=== PATIENT | male | born 1955 | race Caucasian/White ===

== ENCOUNTER 2022-05-04 11:59 | Oncology outpatient (recurring) (ONCR) | payer SELFPAY | END 2022-05-19 23:59 | disposition home or self-care (01) | PROVIDERS: Visit Provider Internal Medicine Hematology & Oncology | DX: C61 Malignant neoplasm of prostate (principal); C79.51 Secondary malignant neoplasm of bone; N32.0 Bladder-neck obstruction; M54.59 Other low back pain; Z79.891 Long term (current) use of opiate analgesic; Z79.818 Long term (current) use of other agents affecting estrogen receptors and estrogen levels; Z79.52 Long term (current) use of systemic steroids; Z79.899 Other long term (current) drug therapy | CPT/HCPCS: 84153; 84403 ==

== ENCOUNTER 2022-06-16 09:30 | Oncology outpatient (recurring) (ONCR) | payer MEDICARE, SELFPAY ==
[2022-06-16 09:40] LABS: Basophils % 0.7 %; Hematocrit 46.9 % (42.0-52.0); Hemoglobin 16.1 g/dL (11.7-16.6); Lymphocytes # 1.4 10^3/uL (0.8-4.8); Lymphocytes % 23.6 %; Mean Corpuscular HGB Conc 34.3 g/dL (30.0-36.0); Mean Corpuscular Volume 96.1 fl (80-94); Monocytes # 0.5 10^3/uL (0.2-0.9); Monocytes % 8.8 %; Neutrophils # 3.88 10^3/uL (1.8-7.7); Neutrophils % 66.7 %; Nucleated Red Blood Cells % 0 %; Platelet Count 203 10^3/cmm (130-400); Red Blood Count 4.88 10^6/uL (4.1-5.3); Red Cell Distribution Width 11.9 % (12.1-15.1); White Blood Count 5.8 10^3/uL (4.0-10.0)
[2022-06-16 10:44] LABS: Alanine Aminotransferase 53 U/L (0-41); Albumin Level 4.2 g/dL (3.5-5.2); Alkaline Phosphatase 172 IU/L (40-130); Anion Gap 19.1 (5-19); Aspartate Amino Transferase 52 U/L (0-40); Blood Urea Nitrogen 6 mg/dL (8-23); Calcium 9.3 mg/dL (8.5-10.5); Carbon Dioxide 23 mmol/L (22-29); Chloride 101 mmol/L (98-107); Globulin 3.5 g/dL (1.3-4.6); Glomerular Filtration Rate 134.8 mL/min (90-130); Glucose 117 mg/dL (65-115); Osmolality Calculated 287 mOsm/kg (285-295); Potassium 4.1 mmol/L (3.5-5.1); Sodium 139 mmol/L (136-145); Total Bilirubin 0.6 mg/dL (0.15-1.2); Total Protein 7.7 g/dL (6.6-8.7)
[2022-06-16] MEDS: denosumab 120 mg SDV SUBCUT (11:34)
[2022-06-16] MEDS: leuprolide 22.5 mg Kit IM (11:35)
[2022-06-16 11:37] LABS: Testosterone Total 689.7 ng/dL (193-740)
== END 2022-06-19 23:59 | disposition home or self-care (01) ==
PROVIDERS: Visit Provider Internal Medicine Hematology & Oncology
DX: Z51.11 Encounter for antineoplastic chemotherapy (principal); Z79.818 Long term (current) use of other agents affecting estrogen receptors and estrogen levels; F17.210 Nicotine dependence, cigarettes, uncomplicated; C61 Malignant neoplasm of prostate; C79.51 Secondary malignant neoplasm of bone
CPT/HCPCS: 36415; 80053; 84153; 84403; 85025; 96372; 96401; 96402; 99214; 99215; J0897; J9217

== ENCOUNTER 2022-06-20 18:35 | Emergency (ER) | payer MEDICARE, SELFPAY ==
[2022-06-20 19:00] VITALS: BP 135/81; PULSE 84; RESP 22; TEMP 36.8; O2SAT 97; BMI 28.2
[2022-06-20 19:54] LABS: Basophils # 0.1 10^3/uL (0.0-0.1); Basophils % 0.6 %; Hematocrit 45.6 % (42.0-52.0); Hemoglobin 15.8 g/dL (11.7-16.6); Lymphocytes # 1.6 10^3/uL (0.8-4.8); Lymphocytes % 19.3 %; Mean Corpuscular HGB Conc 34.6 g/dL (30.0-36.0); Mean Corpuscular Hemoglobin 33.5 pg (28.0-34.0); Mean Corpuscular Volume 96.6 fl (80-94); Mean Platelet Volume 11.1 fL (7.4-10.4); Monocytes # 0.7 10^3/uL (0.2-0.9); Neutrophils # 6.03 10^3/uL (1.8-7.7); Neutrophils % 71.6 %; Nucleated Red Blood Cells % 0 %; Platelet Count 201 10^3/cmm (130-400); Red Blood Count 4.72 10^6/uL (4.1-5.3); Red Cell Distribution Width 11.9 % (12.1-15.1); White Blood Count 8.4 10^3/uL (4.0-10.0)
[2022-06-20 20:28] LABS: Alanine Aminotransferase 36 U/L (0-41); Alkaline Phosphatase 170 IU/L (40-130); Aspartate Amino Transferase 35 U/L (0-40); Blood Urea Nitrogen 7 mg/dL (8-23); Calcium 9.1 mg/dL (8.5-10.5); Carbon Dioxide 23 mmol/L (22-29); Chloride 99 mmol/L (98-107); Globulin 3.5 g/dL (1.3-4.6); Glomerular Filtration Rate 134.8 mL/min (90-130); Glucose 97 mg/dL (65-115); Lipase 36 U/L (13-60); Osmolality Calculated 282 mOsm/kg (285-295); Sodium 137 mmol/L (136-145); Total Bilirubin 0.7 mg/dL (0.15-1.2); Total Protein 7.5 g/dL (6.6-8.7)
[2022-06-20 20:29] LABS: Creatinine Clr Calc Pharmacy 108.3005
[2022-06-20 23:21] VITALS: BP 149/84; PULSE 85; RESP 18; TEMP 37.1; O2SAT 96
[2022-06-20 23:27] LABS: Add Urine Culture? Yes; Add Urine Microscopic? YES; Bacteria Urine 4+ /hpf; Bilirubin Urine Neg (Negative); Blood Urine Neg (Negative); Glucose Urine UA Norm (Normal); Ketones Urine 1+ (Negative); Leukocyte Esterase Urine Trace (Negative); Nitrate Urine Negative (Negative); Protein Urine Neg (Negative); RBC Urine 0-4 /hpf (0-2); Squamous Epithelial Cell Urine 0-4 /hpf (0-5); Urine Appearance Clear (CLEAR); Urine Color Yellow (Yellow); Urobilinogen Urine Norm (Negative); WBC Urine 0-4 /hpf (0-5); pH Urine 6.5 (5-7)
--- NOTE | 2022-06-20 23:27 | CTR_ITS ---
PROCEDURE INFORMATION: Exam: CT Abdomen And Pelvis Without Contrast Exam date and time: 06/20/2022 11:45 PM Age: 66 years old Clinical indication: Abdominal pain; Generalized; Patient HX: C/O abd pain with constipation. History of prostate cancer w/bone mets; Additional info: Abd pain, constipation, HX prostate cancer TECHNIQUE: Imaging protocol: Computed tomography of the abdomen and pelvis without contrast. Radiation optimization: All CT scans at this facility use at least one of these dose optimization techniques: automated exposure control; mA and/or kV adjustment per patient size (includes targeted exams where dose is matched to clinical indication); or iterative reconstruction. COMPARISON: CT abdomen pelvis w con* [id number] 03/10/2022 6:02 PM RADIATION DOSE METRICS: Total DLP (mGy-cm): 805.53 FINDINGS: Liver: Fatty liver. Gallbladder and bile ducts: No calcified stones. No ductal dilation. Pancreas: No ductal dilation. Spleen: No splenomegaly. Adrenal glands: Normal. No mass. Kidneys and ureters: No hydronephrosis. Stomach and bowel: Cecum is distended measuring 9 cm in noted in the right upper quadrant region. No mesenteric twisting or proximal small bowel dilation to suggest acute obstruction. Moderate amount of stool noted in the colon. Appendix: No evidence of appendicitis. Intraperitoneal space: No free air. No significant fluid collection. Vasculature: No abdominal aortic aneurysm. Lymph nodes: Stable enlarged left pelvic lymph nodes. Stable retroperitoneal nodes. Urinary bladder: Unremarkable as visualized. Reproductive: Enlarged heterogeneous appearance prostate gland. Bones/joints: Multiple lytic foci noted in the bony structures of the thorax, pelvis, lumbar spine and sacrum similar to prior examination, in keeping with history of metastases. Stable appearance of S2 with posterior endplate destruction Soft tissues: Unremarkable. CT/CT abdomen pelvis wo con [id number] IMPRESSION: 1. Cecum is distended measuring 9 cm in noted in the right upper quadrant region. No mesenteric twisting or proximal small bowel dilation to suggest acute obstruction. 2. Moderate amount of stool noted in the colon. 3. Enlarged heterogeneous appearance prostate gland. 4. Multiple lytic foci noted in the bony structures of the thorax, pelvis, lumbar spine and sacrum similar to prior examination, in keeping with history of metastases. 5. Stable left pelvic adenopathy.
[2022-06-20] MEDS: ondansetron 2 mg/ML SDV 2 mL 4 MG IVP (23:40)
[2022-06-20] MEDS: sodium chloride 0.9% 1,000 ML 999 ML IV (23:41)
--- NOTE | 2022-06-20 23:43 | W.ED.ABDPA2 ---
Documented by User: JESUS Avina 06/25/22 17:09 HPI - Abdominal Pain General: Chief Complaint: Abdominal Pain Stated Complaint: ABD PAIN Time Seen by Provider: 06/20/22 23:21 History of Present Illness: 66-year-old male patient comes in today with generalized abdominal pain. Patient reports constipation. Patient also reports that he has had not passed any gas since this morning. Patient denies any nausea or vomiting. Patient appears nontoxic. Patient appears in mild to moderate pain. Associated Symptoms: Reports constipation and nausea; Denies diarrhea, hematochezia and vomiting Review of Systems General: Reports: 10 or more systems reviewed and unremarkable except in HPI and below Card: Denies: chest pain Resp: Denies: dyspnea GI: Reports: abdominal pain, nausea and constipation; Denies: vomiting, diarrhea or hematochezia : Denies: difficulty urinating Musc: Denies: neck pain or back pain PFSH ED PFSH: Medical History Prostate cancer metastatic to bone Family History Mother Cancer Father Cancer lung Lung disease Lung cancer Sister Cancer Grandfather Diabetes Denies family history of CAD (coronary artery disease) Clotting disorder Dementia Hyperlipidemia Psychiatric illness Chronic kidney disease (CKD) Suicide Anesthesia complication Bleeding disorder Hypertension Stroke Social History Smoking and tobacco status: current every day smoker (2 ppd) cigarettes Packs smoked per day: 2 Alcohol intake: current Alcohol intake frequency: 3 or more drinks per day Physical Exam Const: COMMON NORMALS: alert HENMT: COMMON NORMALS: normocephalic HEAD & SCALP: normocephalic Neck/C-Spine: CERVICAL SPINE: No Cervical spine tenderness Resp: COMMON NORMALS: normal respiratory effort and clear to auscultation bilaterally AUSCULTATION: clear to auscultation bilaterally Cardio: COMMON NORMALS: regular rate and regular rhythm RATE: regular rate RHYTHM: regular rhythm GI: AUSCULTATION: Yes normoactive bowel sounds PALPATION: Yes Firmness to palpation present (GI) (Distended) and Yes Tenderness to palpation present (GI) (Mild generalized) Extremity: COMMON NORMALS: normal to inspection Neuro: SENSORIUM/ORIENTATION: Yes alert Skin: COMMON NORMALS: no rashes or lesions noted GENERAL SKIN EXAM: no rashes or lesions noted Course Vital Signs: Vital signs: Vital Signs Temperature 98.8 F 06/20/22 23:21 Pulse Rate 80 06/21/22 04:00 Respiratory Rate 20 H 06/21/22 04:21 Blood Pressure 134/72 06/21/22 04:00 Pulse Oximetry 96 06/21/22 04:00 Oxygen Delivery Me thod 06/20/22 19:00 MDM - Abdominal Pain Lab Data : 06/20/22 19:08 06/20/22 19:08 Labs/Radiology: Radiology Impressions Abdomen/Pelvis CT 06/20/22 23:27 IMPRESSION: 1. Cecum is distended measuring 9 cm in noted in the right upper quadrant region. No mesenteric twisting or proximal small bowel dilation to suggest acute obstruction. 2. Moderate amount of stool noted in the colon. 3. Enlarged heterogeneous appearance prostate gland. 4. Multiple lytic foci noted in the bony structures of the thorax, pelvis, lumbar spine and sacrum similar to prior examination, in keeping with history of metastases. 5. Stable left pelvic adenopathy. Laboratory Results WBC 8.4 10^3/uL (4.0-10.0) 06/20/22 19:08 RBC 4.72 10^6/uL (4.1-5.3) 06/20/22 19:08 Hgb 15.8 g/dL (11.7-16.6) 06/20/22 19:08 Hct 45.6 % (42.0-52.0) 06/20/22 19:08 MCV 96.6 fl (80-94) H 06/20/22 19:08 MCH 33.5 pg (28.0-34.0) 06/20/22 19:08 MCHC 34.6 g/dL (30.0-36.0) 06/20/22 19:08 RDW 11.9 % (12.1-15.1) L 06/20/22 19:08 Plt Count 201 10^3/cmm (130-400) 06/20/22 19:08 MPV 11.1 fL (7.4-10.4) H 06/20/22 19:08 Neut % (Auto) 71.6 % 06/20/22 19:08 Lymph % (Auto) 19.3 % 06/20/22 19:08 [place] % (Auto) 8.0 % 06/20/22 19:08 Eos % (Auto) 0.0 % 06/20/22 19:08 Baso % (Auto) 0.6 % 06/20/22 19:08 Neut # (Auto) 6.03 10^3/uL (1.8-7.7) 06/20/22 19:08 Lymph # (Auto) 1.6 10^3/uL (0.8-4.8) 06/20/22 19:08 [place] # (Auto) 0.7 10^3/uL (0.2-0.9) 06/20/22 19:08 Eos # (Auto) 0.0 10^3/uL (0.0-0.8) 06/20/22 19:08 Baso # (Auto) 0.1 10^3/uL (0.0-0.1) 06/20/22 19:08 Nucleated RBC % (auto) 0 % 06/20/22 19:08 Nucleated RBCs # 0.0 /100WBC 06/20/22 19:08 Sodium 137 mmol/L (136-145) 06/20/22 19:08 Potassium 4.0 mmol/L (3.5-5.1) 06/20/22 19:08 Chloride 99 mmol/L (98-107) 06/20/22 19:08 Carbon Dioxide 23 mmol/L (22-29) 06/20/22 19:08 Anion Gap 19.0 (5-19) 06/20/22 19:08 BUN 7 mg/dL (8-23) L 06/20/22 19:08 Creatinine 0.6 mg/dL (0.7-1.2) L 06/20/22 19:08 GFR Calculation 134.8 mL/min (90-130) H 06/20/22 19:08 Glucose 97 mg/dL (65-115) 06/20/22 19:08 Calculated Osmolality 282 mOsm/kg (285-295) L 06/20/22 19:08 Calcium 9.1 mg/dL (8.5-10.5) 06/20/22 19:08 Total Bilirubin 0.7 mg/dL (0.15-1.2) 06/20/22 19:08 AST 35 U/L (0-40) 06/20/22 19:08 ALT 36 U/L (0-41) 06/20/22 19:08 Alkaline Phosphatase 170 IU/L (40-130) H 06/20/22 19:08 Total Protein 7.5 g/dL (6.6-8.7) 06/20/22 19:08 Albumin 4.0 g/dL (3.5-5.2) 06/20/22 19:08 Globulin 3.5 g/dL (1.3-4.6) 06/20/22 19:08 Lipase 36 U/L (13-60) 06/20/22 19:08 Urine Color Yellow (Yellow) 06/20/22 22:30 Urine Appearance Clear (CLEAR) 06/20/22 22:30 Urine pH 6.5 (5-7) 06/20/22 22:30 Ur Specific [place] 1.010 (1.005-1.030) 06/20/22 22:30 Urine Protein Neg (Negative) 06/20/22 22:30 Urine Glucose (UA) Norm (Normal) 06/20/22 22:30 Urine Ketones 1+ (Negative) H 06/20/22 22:30 Urine Blood Neg (Negative) 06/20/22 22:30 Urine Nitrate Negative (Negative) 06/20/22 22:30 Urine Bilirubin Neg (Negative) 06/20/22 22:30 Urine Urobilinogen Norm mg/dL (Negative) 06/20/22 22:30 Ur Leukocyte Esterase Trace (Negative) H 06/20/22 22:30 Urine RBC 0-4 /hpf (0-2) H 06/20/22 22:30 Urine WBC 0-4 /hpf (0-5) H 06/20/22 22:30 Ur Squamous Epith Cells 0-4 /hpf (0-5) H 06/20/22 22:30 Amorphous Sediment Not Reportable 06/20/22 22:30 Urine Bacteria 4+ /hpf (NONE) H 06/20/22 22:30 Discharge Plan Discharge Patient Disposition: Home Clinical Impression: Prostate cancer metastatic to bone, Abdominal pain Condition: Stable Prescriptions: No Action prednisone 5 mg tablet 5 mg PO BID Qty: 60 5RF tamsulosin 0.4 mg capsule 0.4 mg PO BID Qty: 60 5RF hydrocodone-acetaminophen 5-325 mg tablet 1 tab PO .COMPLEX PRN Rx Instructions: 1 tab PO 4 to 6 hours PRN; bicalutamide [Casodex] 50 mg tablet 50 mg PO DAILY 30 Days Qty: 30 0RF Zytiga 250 mg Tablet 250 mg PO DAILY Qty: 28 0RF Rx Instructions: must be taken with or within 30 minutes of a low-fat breakfast Compazine 10 mg tablet 10 mg PO Q4H PRN (Reason: Mild Nausea) Qty: 30 3RF lorazepam 1 mg tablet 0.5 - 1 mg PO Q6H PRN (Reason: Severe Nausea) Qty: 30 3RF Discharge Orders: Discharge ED (Routine); Ordered 06/21/22 Ordered By: José Miguel Ba Discharge Diet: Advance as tolerated Discharge Activity: Resume usual activity Patient Instructions: Abdominal Pain (ED) Coding Level of Care Code ED Digital Producer for Chg Fwd Exam Comprehensive Documented by User: José Miguel Ba MD 06/21/22 04:00 HPI - Abdominal Pain General: Chief Complaint: Abdominal Pain Stated Complaint: ABD PAIN Time Seen by Provider: 06/20/22 23:21 PFSH ED PFSH: Medical History Prostate cancer metastatic to bone Family History Mother Cancer Father Cancer lung Lung disease Lung cancer Sister Cancer Grandfather Diabetes Denies family history of CAD (coronary artery disease) Clotting disorder Dementia Hyperlipidemia Psychiatric illness Chronic kidney disease (CKD) Suicide Anesthesia complication Bleeding disorder Hypertension Stroke Social History Smoking and tobacco status: current every day smoker (2 ppd) cigarettes Packs smoked per day: 2 Alcohol intake: current Alcohol intake frequency: 3 or more drinks per day Course Vital Signs: Vital signs: Vital Signs Temperature 98.8 F 08/01/22 23:21 Pulse Rate 80 06/21/22 04:00 Respiratory Rate 20 H 06/21/22 04:21 Blood Pressure 134/72 06/21/22 04:00 Pulse Oximetry 96 06/21/22 04:00 Oxygen Delivery Me thod 06/20/22 19:00 MDM - Abdominal Pain Medical Decision Making Patient presents here with abdominal pain likely from his cancer does have some constipation as well no acute findings lab work is normal he stable for discharge he is to follow-up his PCP and return if worsening he understands agrees to plan. Lab Data : 06/20/22 19:08 06/20/22 19:08 Labs/Radiology: Radiology Impressions Abdomen/Pelvis CT 06/20/22 23:27 IMPRESSION: 1. Cecum is distended measuring 9 cm in noted in the right upper quadrant region. No mesenteric twisting or proximal small bowel dilation to suggest acute obstruction. 2. Moderate amount of stool noted in the colon. 3. Enlarged heterogeneous appearance prostate gland. 4. Multiple lytic foci noted in the bony structures of the thorax, pelvis, lumbar spine and sacrum similar to prior examination, in keeping with history of metastases. 5. Stable left pelvic adenopathy. Laboratory Results WBC 8.4 10^3/uL (4.0-10.0) 06/20/22 19:08 RBC 4.72 10^6/uL (4.1-5.3) 06/20/22 19:08 Hgb 15.8 g/dL (11.7-16.6) 06/20/22 19:08 Hct 45.6 % (42.0-52.0) 06/20/22 19:08 MCV 96.6 fl (80-94) H 06/20/22 19:08 MCH 33.5 pg (28.0-34.0) 06/20/22 19:08 MCHC 34.6 g/dL (30.0-36.0) 06/20/22 19:08 RDW 11.9 % (12.1-15.1) L 06/20/22 19:08 Plt Count 201 10^3/cmm (130-400) 06/20/22 19:08 MPV 11.1 fL (7.4-10.4) H 06/20/22 19:08 Neut % (Auto) 71.6 % 06/20/22 19:08 Lymph % (Auto) 19.3 % 06/20/22 19:08 [place] % (Auto) 8.0 % 06/20/22 19:08 Eos % (Auto) 0.0 % 06/20/22 19:08 Baso % (Auto) 0.6 % 06/20/22 19:08 Neut # (Auto) 6.03 10^3/uL (1.8-7.7) 06/20/22 19:08 Lymph # (Auto) 1.6 10^3/uL (0.8-4.8) 06/20/22 19:08 [place] # (Auto) 0.7 10^3/uL (0.2-0.9) 06/20/22 19:08 Eos # (Auto) 0.0 10^3/uL (0.0-0.8) 06/20/22 19:08 Baso # (Auto) 0.1 10^3/uL (0.0-0.1) 06/20/22 19:08 Nucleated RBC % (auto) 0 % 06/20/22 19:08 Nucleated RBCs # 0.0 /100WBC 06/20/22 19:08 Sodium 137 mmol/L (136-145) 06/20/22 19:08 Potassium 4.0 mmol/L (3.5-5.1) 06/20/22 19:08 Chloride 99 mmol/L (98-107) 06/20/22 19:08 Carbon Dioxide 23 mmol/L (22-29) 06/20/22 19:08 Anion Gap 19.0 (5-19) 06/20/22 19:08 BUN 7 mg/dL (8-23) L 06/20/22 19:08 Creatinine 0.6 mg/dL (0.7-1.2) L 06/20/22 19:08 GFR Calculation 134.8 mL/min (90-130) H 06/20/22 19:08 Glucose 97 mg/dL (65-115) 06/20/22 19:08 Calculated Osmolality 282 mOsm/kg (285-295) L 06/20/22 19:08 Calcium 9.1 mg/dL (8.5-10.5) 06/20/22 19:08 Total Bilirubin 0.7 mg/dL (0.15-1.2) 06/20/22 19:08 AST 35 U/L (0-40) 06/20/22 19:08 ALT 36 U/L (0-41) 06/20/22 19:08 Alkaline Phosphatase 170 IU/L (40-130) H 06/20/22 19:08 Total Protein 7.5 g/dL (6.6-8.7) 06/20/22 19:08 Albumin 4.0 g/dL (3.5-5.2) 06/20/22 19:08 Globulin 3.5 g/dL (1.3-4.6) 06/20/22 19:08 Lipase 36 U/L (13-60) 06/20/22 19:08 Urine Color Yellow (Yellow) 06/20/22 22:30 Urine Appearance Clear (CLEAR) 06/20/22 22:30 Urine pH 6.5 (5-7) 06/20/22 22:30 Ur Specific [place] 1.010 (1.005-1.030) 06/20/22 22:30 Urine Protein Neg (Negative) 06/20/22 22:30 Urine Glucose (UA) Norm (Normal) 06/20/22 22:30 Urine Ketones 1+ (Negative) H 06/20/22 22:30 Urine Blood Neg (Negative) 06/20/22 22:30 Urine Nitrate Negative (Negative) 06/20/22 22:30 Urine Bilirubin Neg (Negative) 06/20/22 22:30 Urine Urobilinogen Norm mg/dL (Negative) 06/20/22 22:30 Ur Leukocyte Esterase Trace (Negative) H 06/20/22 22:30 Urine RBC 0-4 /hpf (0-2) H 06/20/22 22:30 Urine WBC 0-4 /hpf (0-5) H 06/20/22 22:30 Ur Squamous Epith Cells 0-4 /hpf (0-5) H 06/20/22 22:30 Amorphous Sediment Not Reportable 06/20/22 22:30 Urine Bacteria 4+ /hpf (NONE) H 06/20/22 22:30 Discharge Plan Discharge Patient Disposition: Home Clinical Impression: Prostate cancer metastatic to bone, Abdominal pain Condition: Stable Prescriptions: No Action prednisone 5 mg tablet 5 mg PO BID Qty: 60 5RF tamsulosin 0.4 mg capsule 0.4 mg PO BID Qty: 60 5RF hydrocodone-acetaminophen 5-325 mg tablet 1 tab PO .COMPLEX PRN Rx Instructions: 1 tab PO 4 to 6 hours PRN; bicalutamide [Casodex] 50 mg tablet 50 mg PO DAILY 30 Days Qty: 30 0RF Zytiga 250 mg Tablet 250 mg PO DAILY Qty: 28 0RF Rx Instructions: must be taken with or within 30 minutes of a low-fat breakfast Compazine 10 mg tablet 10 mg PO Q4H PRN (Reason: Mild Nausea) Qty: 30 3RF lorazepam 1 mg tablet 0.5 - 1 mg PO Q6H PRN (Reason: Severe Nausea) Qty: 30 3RF Discharge Orders: Discharge ED (Routine); Ordered 06/21/22 Ordered By: José Miguel Ba Discharge Diet: Advance as tolerated Discharge Activity: Resume usual activity Patient Instructions: Abdominal Pain (ED) Coding Level of Care Code ED Digital Producer for Tayla Fwfabi Exam Comprehensive
[2022-06-21 01:00] VITALS: BP 163/85; PULSE 67; O2SAT 97
[2022-06-21 04:00] VITALS: BP 134/72; PULSE 80; RESP 16; O2SAT 96
[2022-06-21 04:21] VITALS: RESP 20
[2022-06-21] MEDS: morphine 4 mg/mL SDV 1 mL IVP (04:21)
== END 2022-06-21 04:43 | disposition home or self-care (01) ==
PROVIDERS: Emergency Provider Emergency Medicine
DX: R10.9 Unspecified abdominal pain (principal); C61 Malignant neoplasm of prostate; C79.51 Secondary malignant neoplasm of bone; F17.210 Nicotine dependence, cigarettes, uncomplicated
CPT/HCPCS: 74176; 80053; 81001; 83690; 85025; 87077; 87086; 87186; 96361; 96374; 96375; 99285; J2270; J2405; J7030

== ENCOUNTER 2022-07-14 09:00 | Oncology outpatient (recurring) (ONCR) | payer MEDICARE, SELFPAY ==
--- NOTE | 2022-06-20 11:31 | PC.NURSE ---
Patient presented to office complaining of inability to sleep and abdominal cramps. Denies n/v or diarrhea at this time. Upon evaluation patient found to be taking prednisone on an empty stomach. Re-educated patient that prednisone needs to be taken with food. Patient states understanding.
[2022-07-14] MEDS: denosumab 120 mg SDV SUBCUT (10:45)
[2022-07-14 10:54] LABS: Basophils # 0.1 10^3/uL (0.0-0.1); Basophils % 0.9 %; Hematocrit 44.1 % (42.0-52.0); Hemoglobin 15.2 g/dL (11.7-16.6); Lymphocytes % 15.3 %; Mean Corpuscular HGB Conc 34.5 g/dL (30.0-36.0); Mean Corpuscular Hemoglobin 33.3 pg (28.0-34.0); Mean Corpuscular Volume 96.5 fl (80-94); Mean Platelet Volume 10.5 fL (7.4-10.4); Monocytes # 0.5 10^3/uL (0.2-0.9); Monocytes % 7.4 %; Neutrophils # 5.11 10^3/uL (1.8-7.7); Neutrophils % 76.1 %; Nucleated Red Blood Cells % 0 %; Platelet Count 183 10^3/cmm (130-400); Red Blood Count 4.57 10^6/uL (4.1-5.3); Red Cell Distribution Width 11.9 % (12.1-15.1); White Blood Count 6.7 10^3/uL (4.0-10.0)
[2022-07-14 11:31] LABS: Alanine Aminotransferase 37 U/L (0-41); Albumin Level 4.3 g/dL (3.5-5.2); Alkaline Phosphatase 286 U/L (40-130); Aspartate Amino Transferase 27 U/L (0-40); Blood Urea Nitrogen 8 mg/dL (8-23); Calcium 8.4 mg/dL (8.5-10.5); Carbon Dioxide 26 mmol/L (22-29); Chloride 104 mmol/L (98-107); Globulin 3.4 g/dL (1.3-4.6); Glomerular Filtration Rate 166.4 mL/min (90-130); Glucose 103 mg/dL (65-115); Osmolality Calculated 287 mOsm/kg (285-295); Sodium 139 mmol/L (136-145); Total Bilirubin 0.5 mg/dL (0.15-1.2); Total Protein 7.7 g/dL (6.6-8.7)
[2022-07-14 11:33] LABS: Anion Gap 13.7 (5-19); Potassium 4.7 mmol/L (3.5-5.1)
== END 2022-07-20 23:59 | disposition home or self-care (01) ==
PROVIDERS: Nurse Practitioner Family; Visit Provider Internal Medicine Hematology & Oncology
DX: C61 Malignant neoplasm of prostate (principal); C79.51 Secondary malignant neoplasm of bone; Z79.52 Long term (current) use of systemic steroids; Z51.11 Encounter for antineoplastic chemotherapy; F17.210 Nicotine dependence, cigarettes, uncomplicated
CPT/HCPCS: 36415; 80053; 84153; 85025; 96372; 99214; 99215; J0897

== ENCOUNTER 2022-08-11 09:59 | Oncology outpatient (recurring) (ONCR) | payer MEDICARE, SELFPAY ==
[2022-08-11 10:49] LABS: Basophils # 0.1 10^3/uL (0.0-0.1); Basophils % 0.6 %; Hematocrit 44.2 % (42.0-52.0); Hemoglobin 15.2 g/dL (11.7-16.6); Lymphocytes # 1.4 10^3/uL (0.8-4.8); Lymphocytes % 16.7 %; Mean Corpuscular HGB Conc 34.4 g/dL (30.0-36.0); Mean Corpuscular Hemoglobin 33.3 pg (28.0-34.0); Mean Corpuscular Volume 96.7 fl (80-94); Monocytes # 0.7 10^3/uL (0.2-0.9); Monocytes % 7.7 %; Neutrophils # 6.27 10^3/uL (1.8-7.7); Neutrophils % 74.5 %; Nucleated Red Blood Cells % 0 %; Platelet Count 197 10^3/cmm (130-400); Red Blood Count 4.57 10^6/uL (4.1-5.3); White Blood Count 8.4 10^3/uL (4.0-10.0)
[2022-08-11 11:22] LABS: Alanine Aminotransferase 28 U/L (0-41); Albumin Level 4.1 g/dL (3.5-5.2); Alkaline Phosphatase 235 U/L (40-130); Anion Gap 15.1 (5-19); Aspartate Amino Transferase 22 U/L (0-40); Blood Urea Nitrogen 8 mg/dL (8-23); Calcium 8.2 mg/dL (8.5-10.5); Carbon Dioxide 25 mmol/L (22-29); Chloride 102 mmol/L (98-107); Globulin 3.5 g/dL (1.3-4.6); Glomerular Filtration Rate 134.8 mL/min (90-130); Glucose 101 mg/dL (65-115); Osmolality Calculated 284 mOsm/kg (285-295); Potassium 4.1 mmol/L (3.5-5.1); Sodium 138 mmol/L (136-145); Testosterone Total 2.5 ng/dL (193-740); Total Bilirubin 0.5 mg/dL (0.15-1.2); Total Protein 7.6 g/dL (6.6-8.7)
[2022-08-11] MEDS: denosumab 120 mg SDV SUBCUT (12:34)
== END 2022-08-19 23:59 | disposition home or self-care (01) ==
PROVIDERS: Visit Provider Internal Medicine Hematology & Oncology
DX: C61 Malignant neoplasm of prostate; C79.51 Secondary malignant neoplasm of bone; Z79.52 Long term (current) use of systemic steroids; F17.210 Nicotine dependence, cigarettes, uncomplicated; Z79.818 Long term (current) use of other agents affecting estrogen receptors and estrogen levels; Z79.899 Other long term (current) drug therapy; R59.0 Localized enlarged lymph nodes
CPT/HCPCS: 36415; 80053; 84153; 84403; 85025; 96372; 99214; J0897

== ENCOUNTER 2022-09-12 09:05 | Oncology outpatient (recurring) (ONCR) | payer MEDICARE, SELFPAY ==
[2022-09-12 09:23] LABS: Basophils # 0.1 10^3/uL (0.0-0.1); Basophils % 0.9 %; Eosinophils % 0.4 %; Hematocrit 41.3 % (42.0-52.0); Hemoglobin 14.3 g/dL (11.7-16.6); Lymphocytes # 1.7 10^3/uL (0.8-4.8); Lymphocytes % 28.9 %; Mean Corpuscular HGB Conc 34.6 g/dL (30.0-36.0); Mean Corpuscular Volume 98.1 fl (80-94); Mean Platelet Volume 9.7 fL (7.4-10.4); Monocytes # 0.4 10^3/uL (0.2-0.9); Monocytes % 7.2 %; Neutrophils # 3.54 10^3/uL (1.8-7.7); Neutrophils % 62.1 %; Nucleated Red Blood Cells % 0 %; Platelet Count 197 10^3/cmm (130-400); Red Blood Count 4.21 10^6/uL (4.1-5.3); Red Cell Distribution Width 12.3 % (12.1-15.1); White Blood Count 5.7 10^3/uL (4.0-10.0)
[2022-09-12 09:58] LABS: Alanine Aminotransferase 34 U/L (0-41); Albumin Level 4.1 g/dL (3.5-5.2); Alkaline Phosphatase 122 U/L (40-130); Anion Gap 16.2 (5-19); Aspartate Amino Transferase 26 U/L (0-40); Blood Urea Nitrogen 6 mg/dL (8-23); Calcium 9.1 mg/dL (8.5-10.5); Carbon Dioxide 25 mmol/L (22-29); Chloride 104 mmol/L (98-107); Globulin 3.4 g/dL (1.3-4.6); Glomerular Filtration Rate 134.4 mL/min (90-130); Glucose 99 mg/dL (65-115); Osmolality Calculated 290 mOsm/kg (285-295); Potassium 4.2 mmol/L (3.5-5.1); Sodium 141 mmol/L (136-145); Total Bilirubin 0.3 mg/dL (0.15-1.2); Total Protein 7.5 g/dL (6.6-8.7)
[2022-09-12] MEDS: denosumab 120 mg SDV SUBCUT (11:28)
[2022-09-12] MEDS: leuprolide 22.5 mg Kit IM (11:28)
== END 2022-09-19 23:59 | disposition home or self-care (01) ==
PROVIDERS: Visit Provider Internal Medicine Hematology & Oncology
DX: C61 Malignant neoplasm of prostate; C79.51 Secondary malignant neoplasm of bone; F17.210 Nicotine dependence, cigarettes, uncomplicated; Z79.818 Long term (current) use of other agents affecting estrogen receptors and estrogen levels; Z79.52 Long term (current) use of systemic steroids; Z79.899 Other long term (current) drug therapy
CPT/HCPCS: 36415; 80053; 84153; 85025; 96372; 96402; 99214; J0897; J9217

== ENCOUNTER 2022-10-12 11:38 | Oncology outpatient (recurring) (ONCR) | payer MEDICARE, SELFPAY ==
[2022-10-12] MEDS: denosumab 120 mg SDV SUBCUT (11:58)
== END 2022-10-19 23:59 | disposition home or self-care (01) ==
LOC: ONCMED 11:40
PROVIDERS: PCP Registered Nurse; Visit Provider Internal Medicine Hematology & Oncology
DX: Z51.11 Encounter for antineoplastic chemotherapy (principal); C61 Malignant neoplasm of prostate; C79.51 Secondary malignant neoplasm of bone; F17.210 Nicotine dependence, cigarettes, uncomplicated
CPT/HCPCS: 96372; J0897

== ENCOUNTER 2022-11-10 09:05 | Oncology outpatient (recurring) (ONCR) | payer MEDICARE, SELFPAY ==
[2022-11-10] MEDS: denosumab 120 mg SDV SUBCUT (10:18)
[2022-11-10 10:25] VITALS: BP 151/91; PULSE 94; RESP 18; TEMP 36.6; O2SAT 97
== END 2022-11-19 23:59 | disposition home or self-care (01) ==
PROVIDERS: PCP Registered Nurse; Visit Provider Internal Medicine Hematology & Oncology
DX: C61 Malignant neoplasm of prostate (principal); C79.51 Secondary malignant neoplasm of bone; Z79.899 Other long term (current) drug therapy
CPT/HCPCS: 96372; 96401; J0897

== ENCOUNTER 2022-12-05 13:15 | Oncology outpatient (recurring) (ONCR) | payer MEDICARE, SELFPAY ==
[2022-12-05 14:51] LABS: Basophils % 0.5 %; Hematocrit 41.7 % (42.0-52.0); Hemoglobin 14.3 g/dL (11.7-16.6); Lymphocytes # 1.3 10^3/uL (0.8-4.8); Lymphocytes % 15.8 %; Mean Corpuscular HGB Conc 34.3 g/dL (30.0-36.0); Mean Corpuscular Hemoglobin 33.5 pg (28.0-34.0); Mean Corpuscular Volume 97.7 fl (80-94); Mean Platelet Volume 10.2 fL (7.4-10.4); Monocytes # 0.6 10^3/uL (0.2-0.9); Monocytes % 7.1 %; Neutrophils % 76.3 %; Nucleated Red Blood Cells % 0 %; Platelet Count 199 10^3/cmm (130-400); Red Blood Count 4.27 10^6/uL (4.1-5.3); Red Cell Distribution Width 11.5 % (12.1-15.1)
[2022-12-05 15:25] LABS: Alanine Aminotransferase 32 U/L (0-41); Albumin Level 4.3 g/dL (3.5-5.2); Alkaline Phosphatase 78 U/L (40-130); Anion Gap 16.2 (5-19); Aspartate Amino Transferase 21 U/L (0-40); Blood Urea Nitrogen 11 mg/dL (8-23); Calcium 8.7 mg/dL (8.5-10.5); Carbon Dioxide 23 mmol/L (22-29); Chloride 104 mmol/L (98-107); Globulin 3.1 g/dL (1.3-4.6); Glomerular Filtration Rate 134.4 mL/min (90-130); Glucose 96 mg/dL (65-115); Osmolality Calculated 287 mOsm/kg (285-295); Potassium 4.2 mmol/L (3.5-5.1); Prostate Specific Antigen 0.528 ng/mL (0-4); Sodium 139 mmol/L (136-145); Testosterone Total 2.5 ng/dL (193-740); Total Bilirubin 0.4 mg/dL (0.15-1.2); Total Protein 7.4 g/dL (6.6-8.7)
[2022-12-05] MEDS: leuprolide 22.5 mg Kit IM (16:35)
== END 2022-12-20 23:59 | disposition home or self-care (01) ==
PROVIDERS: Nurse Practitioner; PCP Registered Nurse; Visit Provider Internal Medicine Hematology & Oncology
DX: C61 Malignant neoplasm of prostate; C77.8 Secondary and unspecified malignant neoplasm of lymph nodes of multiple regions; C79.51 Secondary malignant neoplasm of bone; D70.4 Cyclic neutropenia; F17.210 Nicotine dependence, cigarettes, uncomplicated; Z79.52 Long term (current) use of systemic steroids; Z79.818 Long term (current) use of other agents affecting estrogen receptors and estrogen levels; Z79.899 Other long term (current) drug therapy
CPT/HCPCS: 80053; 84153; 84403; 85025; 96402; 99214; J9217

== ENCOUNTER 2023-01-24 08:26 | Outpatient (CLI) | payer MEDICARE, SELFPAY ==
--- NOTE | 2023-01-24 08:38 | NM_ITS ---
WS: [id number] NUCLEAR MEDICINE WHOLE BODY BONE SCAN HISTORY: Follow up prostate cancer. COMPARISON: CT abdomen and pelvis 06/20/2022, PET/CT 03/22/2022. TECHNIQUE: The patient was injected with 23.8 mCi of Technetium 99m HDP and serial whole-body scintig carlton have been performed with anterior and posterior images. There are innumerable areas of increased activity involving the ribs, thoracic and lumbar spine and t he pelvis. Focal asymmetric uptake within the pelvis including the SI joints and the randall. Focal incr eased uptake in the mid LEFT humerus. Multifocal involvement of the sternum. Additional degenerative changes at the AC joints and glenohumeral joints. Increased uptake at the tib iotalar joints and hindfoot. These changes are all degenerative. Normal soft tissue uptake. Renal activity is identified. IMPRESSION: 1. Extensive metastatic bone disease. There is significant involvement of the ribs, thoracic and lum bar spines, pelvis and sternum. Additional increased uptake in the mid LEFT humerus. No prior bone sc an for direct comparison. 2. Majority of these findings were also identified on the prior PET/CT and some of these findings we re identified on the CT of the abdomen and pelvis from 06/20/2022. Direct comparison is difficult betwe en different modalities. Improvement or progression is difficult as no prior bone scan has been perfo rmed.
== END 2023-01-24 08:27 | disposition home or self-care (01) ==
LOC: RAD 08:30
PROVIDERS: PCP Registered Nurse; Visit Provider Internal Medicine Hematology & Oncology
DX: C61 Malignant neoplasm of prostate (principal); C79.51 Secondary malignant neoplasm of bone
CPT/HCPCS: 78306; A9561

== ENCOUNTER 2023-01-26 13:55 | Outpatient (CLI) | payer MEDICARE, SELFPAY ==
--- NOTE | 2023-01-26 14:30 | CT_ITS ---
WS: [id number] CT ABDOMEN AND PELVIS WITH CONTRAST HISTORY: Prostate cancer. TECHNIQUE: Imaging performed of the abdomen and pelvis with IV contrast. Single phase imaging of the abdomen. Coronal and sagittal reformats are submitted. All CT scans at [facility] use at [address] one of these dose optimization techniques: automated exposure control; mA and/or kV adjustment per patient size (includes targeted exams where dose is matched to clinical indication); or iterative re construction. IV CONTRAST: Omnipaque 350; 100 mL IV. Oral contrast: No DLP: 762.03 mGy.cm COMPARISON: 06/20/2022. PET/CT 03/22/2022 Lower thorax: Benign granuloma LEFT lung base. Heart is normal size. Small hiatal hernia. Liver/biliary system: Normal size with no intrahepatic dilatation. Gallbladder: Normal. No gallstones or wall thickening. No pericholecystic fluid. Pancreas: Normal size pancreas and pancreatic duct. No adjacent inflammation. Spleen: Normal size spleen. No mass or infarct. Adrenal glands: Normal. Right kidney: Normal. Left kidney: There are a few scattered cortical densities which are too small to characterize. No obs truction or solid mass. Aorta: Moderate atherosclerosis with no aneurysm. Atherosclerotic plaque continues into the mesenteri c arteries. Lymphadenopathy: Previously described adenopathy along the LEFT external iliac chain has significantl y decreased. There is a single lymph node measuring 11 mm which is irregular borders. This correspond s to the largest lymph node on the prior study from 06/20/2022. Significant decrease in size of the lym ph nodes. No new or enlarging lymph nodes. Free fluid: None. GI tract: Study was performed without oral contrast. Stomach is not distended. No small bowel obstruc tion. No evidence for discitis. No evidence for diverticulitis. Abdominal wall: Unremarkable abdominal wall. No hernia. Pelvis: Postsurgical changes are stable at the LEFT inguinal region from prior hernia repair. Urinary bladder is moderately well distended. There is very mild bladder wall thickening which is slightly a symmetric on the LEFT. Prostate gland is small with central calcifications. Bones: Extensive lytic and blastic bone disease is identified. The sclerotic lesions or increasing. T he lytic areas recently described are being replaced with sclerosis. This may indicate treated diseas e. No pathological fractures identified. CT/CT abdomen pelvis w con* [id number] IMPRESSION: 1. Significant improvement in the LEFT external iliac artery lymphadenopathy s ever 06/20/2022. Small residual lymph node measuring 11 mm remains. 2. Small caliber prostate gland with central calcification. 3. Mild bladder wall thickening is slightly asymmetric to the LEFT. No focal a reas of enhancement. 4. Moderate atherosclerosis aorta. 5. Patient has known metastatic bone disease. The lytic lesions previously jessi cribed on 06/20/2022 are becoming sclerotic. There is extensive involvement of th e visualized lumbar spine, sacrum and pelvis and lower thoracic spine. There is no obvious progression of disease or new lesions. The lesions that were previo usly described are become sclerotic. This may indicate treated disease. Also, o n the recent bone scan the lesions within the lumbar spine demonstrated only mi ld uptake as compared to some of the thoracic vertebral bodies and the sacral l esions.
[2023-01-26] MEDS: iohexol 350 mg/mL 500 mL Btl (per mL) IV (14:38)
== END 2023-01-26 13:56 | disposition home or self-care (01) ==
LOC: RAD 13:59
PROVIDERS: PCP Registered Nurse; Visit Provider Internal Medicine Hematology & Oncology
DX: C61 Malignant neoplasm of prostate (principal); C79.51 Secondary malignant neoplasm of bone; I70.0 Atherosclerosis of aorta; R59.0 Localized enlarged lymph nodes
CPT/HCPCS: 74177; Q9967

== ENCOUNTER 2023-02-14 08:00 | Oncology outpatient (recurring) (ONCR) | payer MEDICARE, SELFPAY ==
[2023-01-27 08:30] LABS: Alanine Aminotransferase 36 U/L (0-41); Albumin Level 4.2 g/dL (3.5-5.2); Alkaline Phosphatase 78 U/L (40-130); Anion Gap 15.5 (5-19); Aspartate Amino Transferase 27 U/L (0-40); Blood Urea Nitrogen 9 mg/dL (8-23); Calcium 9.5 mg/dL (8.5-10.5); Carbon Dioxide 26 mmol/L (22-29); Chloride 101 mmol/L (98-107); Globulin 3.3 g/dL (1.3-4.6); Glomerular Filtration Rate 112.5 mL/min (90-130); Glucose 112 mg/dL (65-115); Osmolality Calculated 285 mOsm/kg (285-295); Potassium 4.5 mmol/L (3.5-5.1); Prostate Specific Antigen 0.699 ng/mL (0-4); Sodium 138 mmol/L (136-145); Total Bilirubin 0.3 mg/dL (0.15-1.2); Total Protein 7.5 g/dL (6.6-8.7)
[2023-02-08 07:45] LABS: Basophils # 0.1 10^3/uL (0.0-0.1); Basophils % 0.8 %; Hematocrit 43.2 % (42.0-52.0); Hemoglobin 14.9 g/dL (11.7-16.6); Lymphocytes # 2.5 10^3/uL (0.8-4.8); Lymphocytes % 30.6 %; Mean Corpuscular HGB Conc 34.5 g/dL (30.0-36.0); Mean Corpuscular Hemoglobin 33.3 pg (28.0-34.0); Mean Corpuscular Volume 96.6 fl (80-94); Mean Platelet Volume 10.1 fL (7.4-10.4); Monocytes # 0.9 10^3/uL (0.2-0.9); Monocytes % 11.8 %; Neutrophils # 4.53 10^3/uL (1.8-7.7); Neutrophils % 56.5 %; Nucleated Red Blood Cells % 0 %; Platelet Count 186 10^3/cmm (130-400); Red Blood Count 4.47 10^6/uL (4.1-5.3); Red Cell Distribution Width 11.3 % (12.1-15.1)
[2023-02-14 08:47] LABS: Basophils # 0.1 10^3/uL (0.0-0.1); Hematocrit 42.7 % (42.0-52.0); Hemoglobin 14.5 g/dL (11.7-16.6); Lymphocytes # 1.9 10^3/uL (0.8-4.8); Lymphocytes % 30.8 %; Mean Corpuscular Hemoglobin 32.7 pg (28.0-34.0); Mean Corpuscular Volume 96.2 fl (80-94); Mean Platelet Volume 10.5 fL (7.4-10.4); Monocytes # 0.7 10^3/uL (0.2-0.9); Monocytes % 11.2 %; Neutrophils # 3.49 10^3/uL (1.8-7.7); Neutrophils % 56.7 %; Nucleated Red Blood Cells % 0 %; Platelet Count 202 10^3/cmm (130-400); Red Blood Count 4.44 10^6/uL (4.1-5.3); Red Cell Distribution Width 11.2 % (12.1-15.1); White Blood Count 6.2 10^3/uL (4.0-10.0)
[2023-02-14 09:11] LABS: Alanine Aminotransferase 35 U/L (0-41); Alkaline Phosphatase 71 U/L (40-130); Anion Gap 15.1 (5-19); Aspartate Amino Transferase 27 U/L (0-40); Blood Urea Nitrogen 7 mg/dL (8-23); Calcium 9.3 mg/dL (8.5-10.5); Carbon Dioxide 26 mmol/L (22-29); Chloride 105 mmol/L (98-107); Globulin 3.1 g/dL (1.3-4.6); Glomerular Filtration Rate 134.4 mL/min (90-130); Glucose 102 mg/dL (65-115); Osmolality Calculated 292 mOsm/kg (285-295); Potassium 4.1 mmol/L (3.5-5.1); Sodium 142 mmol/L (136-145); Total Bilirubin 0.4 mg/dL (0.15-1.2); Total Protein 7.1 g/dL (6.6-8.7)
== END 2023-02-17 23:59 | disposition home or self-care (01) ==
PROVIDERS: Nurse Practitioner Family; PCP Registered Nurse; Visit Provider Internal Medicine Hematology & Oncology
DX: C61 Malignant neoplasm of prostate (principal); C79.51 Secondary malignant neoplasm of bone; C77.8 Secondary and unspecified malignant neoplasm of lymph nodes of multiple regions; F17.210 Nicotine dependence, cigarettes, uncomplicated; Z79.52 Long term (current) use of systemic steroids; Z79.818 Long term (current) use of other agents affecting estrogen receptors and estrogen levels; Z79.899 Other long term (current) drug therapy
CPT/HCPCS: 36415; 80053; 84153; 85025; 99213; 99214

== ENCOUNTER 2023-03-13 11:57 | Oncology outpatient (recurring) (ONCR) | payer MEDICARE, SELFPAY ==
[2023-03-13 13:32] LABS: Basophils % 0.7 %; Hematocrit 42.2 % (42.0-52.0); Hemoglobin 14.7 g/dL (11.7-16.6); Lymphocytes # 1.5 10^3/uL (0.8-4.8); Lymphocytes % 23.9 %; Mean Corpuscular HGB Conc 34.8 g/dL (30.0-36.0); Mean Corpuscular Hemoglobin 33.1 pg (28.0-34.0); Mean Platelet Volume 10.1 fL (7.4-10.4); Monocytes # 0.6 10^3/uL (0.2-0.9); Monocytes % 9.4 %; Neutrophils # 3.99 10^3/uL (1.8-7.7); Neutrophils % 65.7 %; Nucleated Red Blood Cells % 0 %; Platelet Count 193 10^3/cmm (130-400); Red Blood Count 4.44 10^6/uL (4.1-5.3); Red Cell Distribution Width 11.2 % (12.1-15.1); White Blood Count 6.1 10^3/uL (4.0-10.0)
[2023-03-13 13:56] LABS: Alanine Aminotransferase 42 U/L (0-41); Albumin Level 4.2 g/dL (3.5-5.2); Alkaline Phosphatase 69 U/L (40-130); Anion Gap 14.1 (5-19); Aspartate Amino Transferase 29 U/L (0-40); Blood Urea Nitrogen 9 mg/dL (8-23); Calcium 9.2 mg/dL (8.5-10.5); Carbon Dioxide 25 mmol/L (22-29); Chloride 100 mmol/L (98-107); Globulin 3.1 g/dL (1.3-4.6); Glomerular Filtration Rate 134.4 mL/min (90-130); Glucose 95 mg/dL (65-115); Osmolality Calculated 278 mOsm/kg (285-295); Potassium 4.1 mmol/L (3.5-5.1); Prostate Specific Antigen 0.657 ng/mL (0-4); Sodium 135 mmol/L (136-145); Testosterone Total 9.2 ng/dL (193-740); Total Bilirubin 0.4 mg/dL (0.15-1.2); Total Protein 7.3 g/dL (6.6-8.7)
[2023-03-13] MEDS: leuprolide 22.5 mg Kit IM (14:37)
== END 2023-03-19 23:59 | disposition home or self-care (01) ==
PROVIDERS: PCP Registered Nurse; Visit Provider Internal Medicine Hematology & Oncology
DX: C79.51 Secondary malignant neoplasm of bone (principal); C77.8 Secondary and unspecified malignant neoplasm of lymph nodes of multiple regions; F17.210 Nicotine dependence, cigarettes, uncomplicated; Z79.52 Long term (current) use of systemic steroids; Z79.818 Long term (current) use of other agents affecting estrogen receptors and estrogen levels; Z79.899 Other long term (current) drug therapy; C61 Malignant neoplasm of prostate
CPT/HCPCS: 36415; 80053; 84153; 84403; 85025; 96402; 99214; J9217

== ENCOUNTER 2023-06-15 10:44 | Oncology outpatient (recurring) (ONCR) | payer MEDICARE, SELFPAY ==
[2023-06-15 10:56] VITALS: BP 163/99; PULSE 115; RESP 18; TEMP 36.5; O2SAT 95
[2023-06-15 11:06] LABS: Basophils # 0.1 10^3/uL (0.0-0.1); Hemoglobin 14.8 g/dL (11.7-16.6); Lymphocytes # 1.7 10^3/uL (0.8-4.8); Lymphocytes % 23.5 %; Mean Corpuscular HGB Conc 34.4 g/dL (30.0-36.0); Mean Corpuscular Hemoglobin 33.6 pg (28.0-34.0); Mean Corpuscular Volume 97.5 fl (80-94); Mean Platelet Volume 10.7 fL (7.4-10.4); Monocytes # 0.7 10^3/uL (0.2-0.9); Monocytes % 9.8 %; Neutrophils # 4.66 10^3/uL (1.8-7.7); Neutrophils % 65.1 %; Nucleated Red Blood Cells % 0 %; Platelet Count 215 10^3/cmm (130-400); Red Blood Count 4.41 10^6/uL (4.1-5.3); Red Cell Distribution Width 11.6 % (12.1-15.1); White Blood Count 7.2 10^3/uL (4.0-10.0)
[2023-06-15 11:52] LABS: Alanine Aminotransferase 49 U/L (0-41); Albumin Level 4.5 g/dL (3.5-5.2); Alkaline Phosphatase 95 U/L (40-130); Anion Gap 17.9 (5-19); Aspartate Amino Transferase 31 U/L (0-40); Blood Urea Nitrogen 9 mg/dL (8-23); Carbon Dioxide 25 mmol/L (22-29); Chloride 100 mmol/L (98-107); Globulin 2.7 g/dL (1.3-4.6); Glomerular Filtration Rate 134.4 mL/min (90-130); Glucose 108 mg/dL (65-115); Osmolality Calculated 285 mOsm/kg (285-295); Potassium 4.9 mmol/L (3.5-5.1); Sodium 138 mmol/L (136-145); Testosterone Total 17.1 ng/dL (193-740); Total Bilirubin 0.4 mg/dL (0.15-1.2); Total Protein 7.2 g/dL (6.6-8.7)
[2023-06-15] MEDS: leuprolide 22.5 mg Kit IM (13:22)
[2023-06-15] MEDS: denosumab 120 mg SDV SUBCUT (13:23)
== END 2023-06-19 23:59 | disposition home or self-care (01) ==
PROVIDERS: Nurse Practitioner; PCP Registered Nurse; Visit Provider Internal Medicine Hematology & Oncology
DX: C79.51 Secondary malignant neoplasm of bone (principal); C77.8 Secondary and unspecified malignant neoplasm of lymph nodes of multiple regions; F17.210 Nicotine dependence, cigarettes, uncomplicated; Z79.52 Long term (current) use of systemic steroids; Z79.818 Long term (current) use of other agents affecting estrogen receptors and estrogen levels; Z79.899 Other long term (current) drug therapy; C61 Malignant neoplasm of prostate
CPT/HCPCS: 36415; 80053; 84153; 84403; 85025; 96372; 96402; 99214; J0897; J9217

== ENCOUNTER 2023-07-17 10:37 | Oncology outpatient (recurring) (ONCR) | payer MEDICARE, SELFPAY ==
[2023-07-17 10:55] VITALS: BP 151/92; PULSE 87; RESP 18; TEMP 36.3; O2SAT 96
[2023-07-17 11:13] LABS: Basophils # 0.1 10^3/uL (0.0-0.1); Basophils % 0.8 %; Hematocrit 41.2 % (37-53); Lymphocytes # 1.6 10^3/uL (0.8-4.8); Lymphocytes % 22.5 %; Mean Corpuscular HGB Conc 35.4 g/dL (30-55); Mean Corpuscular Hemoglobin 34.4 pg (27-33); Mean Corpuscular Volume 97.2 fl (82-101); Mean Platelet Volume 10.4 fL (7.4-10.4); Monocytes # 0.8 10^3/uL (0.2-0.9); Monocytes % 11.6 %; Neutrophils # 4.59 10^3/uL (1.8-7.7); Neutrophils % 64.8 %; Nucleated Red Blood Cells % 0 %; Platelet Count 186 10^3/cmm (157-399); Red Blood Count 4.24 10^6/uL (3.85-5.65); Red Cell Distribution Width 11.4 % (12.1-15.1); White Blood Count 7.08 10^3/uL (3.29-11.43)
[2023-07-17 11:42] LABS: Alanine Aminotransferase 51 U/L (0-41); Albumin Level 4.2 g/dL (3.5-5.2); Alkaline Phosphatase 82 U/L (40-130); Anion Gap 14.1 (5-19); Aspartate Amino Transferase 30 U/L (0-40); Blood Urea Nitrogen 8 mg/dL (8-23); Calcium 8.9 mg/dL (8.5-10.5); Carbon Dioxide 25 mmol/L (22-29); Chloride 102 mmol/L (98-107); Globulin 2.9 g/dL (1.3-4.6); Glomerular Filtration Rate 134.4 mL/min (90-130); Glucose 109 mg/dL (65-115); Osmolality Calculated 283 mOsm/kg (285-295); Potassium 4.1 mmol/L (3.5-5.1); Sodium 137 mmol/L (136-145); Total Bilirubin 0.5 mg/dL (0.15-1.2); Total Protein 7.1 g/dL (6.6-8.7)
[2023-07-17 11:47] LABS: Testosterone Total 26.1 ng/dL (193-740)
== END 2023-07-20 23:59 | disposition home or self-care (01) ==
PROVIDERS: Internal Medicine Medical Oncology; Nurse Practitioner; PCP Registered Nurse; Visit Provider Internal Medicine Hematology & Oncology
DX: C79.51 Secondary malignant neoplasm of bone (principal); C77.8 Secondary and unspecified malignant neoplasm of lymph nodes of multiple regions; F17.210 Nicotine dependence, cigarettes, uncomplicated; Z79.52 Long term (current) use of systemic steroids; Z79.818 Long term (current) use of other agents affecting estrogen receptors and estrogen levels; Z79.899 Other long term (current) drug therapy; D70.4 Cyclic neutropenia; C61 Malignant neoplasm of prostate
CPT/HCPCS: 36415; 80053; 84153; 84403; 85025; 99214

== ENCOUNTER 2023-08-03 12:30 | Outpatient (CLI) | payer MEDICARE, SELFPAY ==
--- NOTE | 2023-08-03 13:00 | CT_ITS ---
WS: [id number] CT CHEST, ABDOMEN AND PELVIS WITH CONTRAST HISTORY: increasing PSA TECHNIQUE: Contiguous 5 mm axial imaging performed through the chest, abdomen and pelvis with IV cont rast, oral contrast has been provided. Coronal and sagittal reformats chest. Coronal and sagittal ref ormats through the abdomen and pelvis. All CT scans at [facility] use at least one of these d ose optimization techniques: automated exposure control; mA and/or kV adjustment per patient size (in cludes targeted exams where dose is matched to clinical indication); or iterative reconstruction. CONTRAST: Omnipaque 350; 100 mL IV. DLP: 1082.86 mGy.cm COMPARISON: 01/26/[address]: Centrilobular emphysema. No pulmonary mass, pneumonia or nodules. No pericardial or pleural effusions. Heart size is normal. Mild atherosclerosis aorta. Normal sized pulmonary artery. No media stinal or hilar adenopathy. Small hiatal hernia. Extensive osteoblastic metastatic disease throughout the thoracic vertebral bodies and the bones of t he thorax including the sternum, scapula and ribs. As compared to the PET/CT there is been a progress ion of osteo blastic bone disease. Abdomen CT: Normal liver, spleen and gallbladder. Normal pancreas and adrenal glands. No renal obstru ction or solid mass. Moderate atherosclerosis aorta. No ascites or adenopathy. Normal appearance of the stomach. No small bowel obstruction. No colon obstruction. Normal appendix. Pelvic CT: Prostate gland is small caliber with central calcification. Well distended urinary bladder . No focal nodular enhancement. No ascites or pelvic adenopathy. Inguinal canals are patent bilateral ly. Although very slight there has probably been a very slight progression in osteoblastic bone disease s ever 01/26/2023 within the pelvis and lumbar spine. IMPRESSION: 1. No metastatic nodules within the lungs, liver or adrenal glands. 2. No adenopathy within the chest, abdomen or pelvis. 3. Patient has known extensive osteoblastic prostate metastasis. As compared to the prior CT of 2021 osteoblastic changes in the lower thoracic spine have increased. Equivocal change of osteoblasti c disease in the lumbar spine and pelvis since 01/26/2023.
[2023-08-03] MEDS: iohexol 350 mg/mL 500 mL Btl (per mL) IV (13:30)
[2023-08-03] MEDS: iohexol 350 mg/mL 500 mL Btl (per mL) PO (13:31)
== END 2023-08-03 12:31 | disposition home or self-care (01) ==
LOC: RAD 12:35
PROVIDERS: PCP Registered Nurse; Visit Provider Internal Medicine Medical Oncology
DX: C61 Malignant neoplasm of prostate (principal); C79.51 Secondary malignant neoplasm of bone
CPT/HCPCS: 71260; 74177; Q9967

== ENCOUNTER 2023-09-01 07:35 | Outpatient (CLI) | payer MEDICARE, SELFPAY ==
--- NOTE | 2023-09-01 08:00 | NM_ITS ---
WS: [id number] NUCLEAR MEDICINE BONE SCAN Radiopharmaceutical: 24.7 Tc-99m MDP mCi IV Injection site: Antecubital Postinjection imaging delay: 1 hr CLINICAL INFORMATION: Prostate cancer metastatic to bone COMPARISON: 01/24/2023 FINDINGS: Bone lesions: Diffuse bony metastatic disease throughout the axial skeleton also involving the LEFT p roximal humerus similar to previous. Numerous punctate foci involving the ribs bilaterally, thoracic spine, lower lumbar spine, bony pelvis, and sacrum. Multiple punctate foci involve the sternum simila r to previous. Soft tissue contours: Normal. Kidneys: Normal. Other findings: Degenerative type uptake both AC joints, both knees, and both ankles. IMPRESSION: Diffuse bony metastatic disease described above does not appear significantly changed since 01/24/2023
== END 2023-09-01 07:36 | disposition home or self-care (01) ==
LOC: RAD 07:37
PROVIDERS: PCP Registered Nurse; Visit Provider Internal Medicine Medical Oncology
DX: C61 Malignant neoplasm of prostate (principal); C79.51 Secondary malignant neoplasm of bone
CPT/HCPCS: 78306; A9561

== ENCOUNTER 2023-10-18 11:45 | Oncology outpatient (recurring) (ONCR) | payer MEDICARE, SELFPAY ==
[2023-10-04] MEDS: denosumab 120 mg SDV SUBCUT (12:07)
[2023-10-04] MEDS: leuprolide 22.5 mg Kit IM (12:09)
[2023-10-04 12:21] LABS: Basophils # 0.1 10^3/uL (0.0-0.1); Basophils % 0.9 %; Eosinophils # 0.1 10^3/uL (0.0-0.8); Eosinophils % 1.1 %; Hematocrit 40.7 % (37-53); Lymphocytes # 1.2 10^3/uL (0.8-4.8); Lymphocytes % 22.6 %; Mean Corpuscular HGB Conc 35.6 g/dL (30-55); Mean Corpuscular Hemoglobin 34.4 pg (27-33); Mean Corpuscular Volume 96.4 fl (82-101); Mean Platelet Volume 10.2 fL (7.4-10.4); Monocytes # 0.7 10^3/uL (0.2-0.9); Monocytes % 12.4 %; Neutrophils # 3.38 10^3/uL (1.8-7.7); Neutrophils % 62.8 %; Nucleated Red Blood Cells % 0 %; Platelet Count 166 10^3/cmm (157-399); Red Blood Count 4.22 10^6/uL (3.85-5.65); Red Cell Distribution Width 11.4 % (12.1-15.1); White Blood Count 5.39 10^3/uL (3.29-11.43)
[2023-10-04 12:56] LABS: Alanine Aminotransferase 55 U/L (0-41); Albumin Level 3.9 g/dL (3.5-5.2); Alkaline Phosphatase 80 U/L (40-130); Anion Gap 17.7 (5-19); Aspartate Amino Transferase 41 U/L (0-40); Blood Urea Nitrogen 9 mg/dL (8-23); Calcium 9.3 mg/dL (8.5-10.5); Carbon Dioxide 22 mmol/L (22-29); Chloride 102 mmol/L (98-107); Globulin 3.1 g/dL (1.3-4.6); Glucose 113 mg/dL (65-115); Osmolality Calculated 285 mOsm/kg (285-295); Potassium 3.7 mmol/L (3.5-5.1); Sodium 138 mmol/L (136-145); Testosterone Total 25.1 ng/dL (193-740); Total Bilirubin 0.7 mg/dL (0.15-1.2)
== END 2023-10-19 23:59 | disposition home or self-care (01) ==
PROVIDERS: Internal Medicine Medical Oncology; PCP Registered Nurse; Visit Provider Internal Medicine Medical Oncology
DX: Z53.9 Procedure and treatment not carried out, unspecified reason (principal)
CPT/HCPCS: 36415; 80053; 84153; 84403; 85025; 96372; 96401; 99214; J0897; J9217

== ENCOUNTER 2024-01-05 09:12 | Outpatient (CLI) | payer MEDICARE, SELFPAY ==
--- NOTE | 2024-01-05 09:30 | NM_ITS ---
WS: [id number] NUCLEAR MEDICINE BONE SCAN Radiopharmaceutical: 27.1 Tc-99m MDP mCi IV Injection site: Antecubital Postinjection imaging delay: 1 hr CLINICAL INFORMATION: prostate cancer metastatic to bone COMPARISON: 09/01/2023 FINDINGS: Bone lesions: Previously described diffuse metastatic disease appears somewhat improved compared to p revious with decreased intensity of bony activity. Persistent foci of uptake in the LEFT humeral shaf t, sternum and manubrium, bilateral ribs, cervical and thoracic spine, and lumbosacral junction exten ding into the sacrum. No evidence of new or significant progressed disease. Soft tissue contours: Normal. Kidneys: Normal. Other findings: Degenerative type uptake involving both AC joints, knees, and ankles. IMPRESSION: 1. No evidence of new or progressed bony metastatic disease. 2. Persistent foci of activity in a similar distribution as previous appears somewhat improved with decreased intensity today. 3. No other significant changes.
== END 2024-01-05 09:13 | disposition home or self-care (01) ==
LOC: RAD 09:13
PROVIDERS: PCP Registered Nurse; Visit Provider Internal Medicine
DX: C61 Malignant neoplasm of prostate (principal); C79.51 Secondary malignant neoplasm of bone
CPT/HCPCS: 78306; A9561

== ENCOUNTER 2024-01-09 09:38 | Outpatient (CLI) | payer MEDICARE, SELFPAY ==
--- NOTE | 2024-01-09 11:00 | CT_ITS ---
WS: [id number] CT CHEST, ABDOMEN, AND PELVIS TECHNIQUE: Contrast-enhanced CT of the chest, abdomen, and pelvis with coronal and sagittal reformatt ed images. CLINICAL INFORMATION: Prostate cancer metastatic to bone COMPARISON: CT 08/03/2023. PET CT 10/17/2023 DLP: 1237.[address] scans at [facility] use at least one of these dose optimization techniques: automated e xposure control; mA and/or kV adjustment per patient size (includes targeted exams where dose is matc hed to clinical indication); or iterative reconstruction. CT CHEST: Mild chronic emphysematous changes. Fibrosis in the lung apices. Calcified granuloma LEFT lower lobe. No new suspicious pulmonary parenchymal abnormalities. Normal thyroid gland. Normal caliber thoracic aorta. Aortic calcification. Coronary calcification. No mediastinal or hilar lymphadenopathy. No axi llary lymphadenopathy. Innumerable blastic metastatic lesions throughout the thoracic spine is stable in appearance since the prior CT 08/03/2023. Blastic lesions throughout the visualized ribs are simil ar in appearance. Similar-appearing blastic metastatic lesions in the scapula. A few small stable nodules in the LEFT lung apex. CT ABDOMEN AND PELVIS: Diffuse blastic metastatic lesions in the lumbar spine and bony pelvis extending into the proximal fe murs similar in appearance to 08/03/2023. Diffuse fatty infiltration of the liver. Normal portal vein and splenic vein. Normal pancreas. Normal spleen. Normal GE junction. Adrenal glands are normal. Normal renal parenchymal enhancement. No hydronephrosis. Small LEFT renal cyst. Normal caliber abdominal aorta. Diffuse bladder wall thickening. Prostate calcification. Magnolia l sigmoid colon. No evidence of high-grade small or large bowel obstruction. No adenopathy in the abd omen or pelvis. No inguinal lymphadenopathy. IMPRESSION: 1. No evidence of progressed disease in the chest abdomen or pelvis. 2. Stable blastic metastatic lesions throughout the axial and appendicular skeleton. 3. No adenopathy in the chest abdomen or pelvis. 4. Mild diffuse fatty infiltration of the liver. 5. No other remarkable findings.
[2024-01-09] MEDS: iohexol 350 mg/mL 100 mL Btl IV (11:15)
[2024-01-09] MEDS: iohexol 350 mg/mL 500 mL Btl (per mL) PO (11:15)
== END 2024-01-09 09:39 | disposition home or self-care (01) ==
LOC: RAD 09:38
PROVIDERS: PCP Registered Nurse; Visit Provider Internal Medicine
DX: C61 Malignant neoplasm of prostate (principal); C79.51 Secondary malignant neoplasm of bone
CPT/HCPCS: 71260; 74177; Q9967

== ENCOUNTER 2024-01-10 13:02 | Oncology outpatient (recurring) (ONCR) | payer MEDICARE, SELFPAY ==
[2023-12-26 12:39] LABS: Basophils # 0.1 10^3/uL (0.0-0.1); Hematocrit 44.1 % (37-53); Lymphocytes # 1.7 10^3/uL (0.8-4.8); Lymphocytes % 22.6 %; Mean Corpuscular HGB Conc 35.6 g/dL (30-55); Mean Corpuscular Hemoglobin 34.3 pg (27-33); Mean Corpuscular Volume 96.3 fl (82-101); Monocytes # 0.6 10^3/uL (0.2-0.9); Monocytes % 8.8 %; Neutrophils # 4.91 10^3/uL (1.8-7.7); Neutrophils % 67.3 %; Nucleated Red Blood Cells % 0 %; Platelet Count 177 10^3/cmm (157-399); Red Blood Count 4.58 10^6/uL (3.85-5.65); Red Cell Distribution Width 11.2 % (12.1-15.1); White Blood Count 7.29 10^3/uL (3.29-11.43)
[2023-12-26 13:09] LABS: Alanine Aminotransferase 64 U/L (0-41); Albumin Level 4.3 g/dL (3.5-5.2); Alkaline Phosphatase 77 U/L (40-130); Anion Gap 17.1 (5-19); Aspartate Amino Transferase 50 U/L (0-40); Blood Urea Nitrogen 9 mg/dL (8-23); Calcium 9.6 mg/dL (8.5-10.5); Carbon Dioxide 25 mmol/L (22-29); Chloride 98 mmol/L (98-107); Globulin 3.4 g/dL (1.3-4.6); Glomerular Filtration Rate 112.1 mL/min (90-130); Glucose 113 mg/dL (65-115); Osmolality Calculated 281 mOsm/kg (285-295); Potassium 4.1 mmol/L (3.5-5.1); Sodium 136 mmol/L (136-145); Testosterone Total 26.6 ng/dL (193-740); Total Bilirubin 0.5 mg/dL (0.15-1.2); Total Protein 7.7 g/dL (6.6-8.7)
[2023-12-26] MEDS: leuprolide 22.5 mg Kit IM (15:58)
[2023-12-26] MEDS: denosumab 120 mg SDV SUBCUT (15:59)
[2024-01-10 13:12] LABS: Basophils % 0.7 %; Hematocrit 41.7 % (37-53); Lymphocytes # 1.6 10^3/uL (0.8-4.8); Lymphocytes % 26.5 %; Mean Corpuscular Hemoglobin 34.4 pg (27-33); Mean Corpuscular Volume 98.1 fl (82-101); Mean Platelet Volume 10.2 fL (7.4-10.4); Monocytes # 0.7 10^3/uL (0.2-0.9); Monocytes % 10.9 %; Neutrophils # 3.75 10^3/uL (1.8-7.7); Neutrophils % 61.7 %; Nucleated Red Blood Cells % 0 %; Platelet Count 173 10^3/cmm (157-399); Red Blood Count 4.25 10^6/uL (3.85-5.65); Red Cell Distribution Width 11.3 % (12.1-15.1); White Blood Count 6.07 10^3/uL (3.29-11.43)
[2024-01-10 13:37] LABS: Alanine Aminotransferase 69 U/L (0-41); Alkaline Phosphatase 86 U/L (40-130); Anion Gap 15.1 (5-19); Aspartate Amino Transferase 61 U/L (0-40); Blood Urea Nitrogen 9 mg/dL (8-23); Calcium 8.7 mg/dL (8.5-10.5); Carbon Dioxide 24 mmol/L (22-29); Chloride 102 mmol/L (98-107); Globulin 3.2 g/dL (1.3-4.6); Glucose 102 mg/dL (65-115); Lactate Dehydrogenase 237 U/L (135-225); Osmolality Calculated 283 mOsm/kg (285-295); Potassium 4.1 mmol/L (3.5-5.1); Sodium 137 mmol/L (136-145); Testosterone Total 22.9 ng/dL (193-740); Total Bilirubin 0.4 mg/dL (0.15-1.2); Total Protein 7.2 g/dL (6.6-8.7)
== END 2024-01-18 23:59 | disposition home or self-care (01) ==
PROVIDERS: Internal Medicine; PCP Registered Nurse; Visit Provider Internal Medicine Medical Oncology
DX: C61 Malignant neoplasm of prostate (principal); C79.51 Secondary malignant neoplasm of bone; C77.8 Secondary and unspecified malignant neoplasm of lymph nodes of multiple regions; Z79.899 Other long term (current) drug therapy; Z79.818 Long term (current) use of other agents affecting estrogen receptors and estrogen levels; Z72.0 Tobacco use; Z53.9 Procedure and treatment not carried out, unspecified reason
CPT/HCPCS: 36415; 71260; 74177; 80053; 83615; 84153; 84403; 85025; 96372; 96402; 99214; J0897; J9217; Q9967

== ENCOUNTER 2024-01-23 08:15 | Oncology outpatient (recurring) (ONCR) | payer MEDICARE, SELFPAY ==
[2024-01-23 08:29] VITALS: BP 139/84; PULSE 93; RESP 18; TEMP 37; O2SAT 98
[2024-01-23] MEDS: denosumab 120 mg SDV SUBCUT (08:36)
== END 2024-02-18 23:59 | disposition home or self-care (01) ==
LOC: ONCMED 08:15
PROVIDERS: PCP Registered Nurse; Visit Provider Internal Medicine Medical Oncology
DX: C61 Malignant neoplasm of prostate (principal); Z51.11 Encounter for antineoplastic chemotherapy
CPT/HCPCS: 96372; J0897

== ENCOUNTER 2024-01-26 08:11 | Outpatient (CLI) | payer MEDICARE, SELFPAY ==
--- NOTE | 2024-01-26 08:45 | MR_ITS ---
WS: [id number] MRI BRAIN WITH AND WITHOUT CONTRAST HISTORY: prostate cancer metastatic to bone COMPARISON: 03/22/2022 TECHNIQUE: Multiplanar imaging performed through the brain with MultiHance 18 ml's IV. There is an area of diffusion abnormality involving the anterior limb of the RIGHT capsule. Mildly po sitive on diffusion with decreased corresponding signal on the ADC map. There is some mild enhancemen t. The enhancement is slightly tubular in appearance and extending towards the lateral ventricle whic h may indicate an underlying vascular lesion such as a venous angioma. No additional diffusion abnorm alities are identified. This is a new finding as compared to 03/22/2022. No hemorrhage. Mild volume loss is symmetric. Mild small vessel ischemic disease. Ischemic disease has mildly progre ssed since the prior examination. Ventricles and extra-axial spaces are normal. Clivus and pituitary gland are normal. Visualized posterior fossa and brainstem are also normal. There is mild enhancement within the diffusion abnormality involving the anterior limb of the RIGHT c apsule. This does not have the appearance of a typical metastatic lesion. No additional areas of abno rmal enhancement. Dural venous sinuses are normal. Paranasal sinuses: Mild to moderate mucoperiosteal thickening involving the paranasal sinuses. No air -fluid levels. Mastoid air cells: Normal. Calvarium and scalp: Normal. IMPRESSION: 1. Diffusion abnormality most consistent with a subacute ischemic event involving the anterior RIGHT internal capsule. There is mild enhancement in the area of diffusion abnormality. I favor this is pr obably a subacute infarct. This does not have the typical appearance of a metastatic lesion. Suggest interval short-term MRI brain follow-up with contrast. Suggest follow-up in 4 to 6 weeks to evaluate for evolution. This will help confirm metastatic lesion versus evolving subacute infarct. There is a component of tubular enhancement which might indicate an underlying venous angioma at the site. 2. Mild atrophy and volume loss. 3. Mild small vessel ischemic type changes which have progressed since 03/22/2022.
[2024-01-26] MEDS: gadobenate dimeglumine 20 mL vial IV (09:01)
== END 2024-01-26 08:12 | disposition home or self-care (01) ==
LOC: RAD 08:13
PROVIDERS: PCP Registered Nurse; Visit Provider Internal Medicine
DX: C61 Malignant neoplasm of prostate (principal); C79.51 Secondary malignant neoplasm of bone; R90.89 Other abnormal findings on diagnostic imaging of central nervous system; I67.89 Other cerebrovascular disease
CPT/HCPCS: 70553; A9577

== ENCOUNTER 2024-03-19 09:30 | Oncology outpatient (recurring) (ONCR) | payer MEDICARE, SELFPAY ==
[2024-02-20 08:34] VITALS: BP 166/87; PULSE 81; RESP 16; TEMP 36.6; O2SAT 94
[2024-02-20 09:09] LABS: Alanine Aminotransferase 57 U/L (0-41); Albumin Level 4.1 g/dL (3.5-5.2); Alkaline Phosphatase 79 U/L (40-130); Anion Gap 12.7 (5-19); Aspartate Amino Transferase 51 U/L (0-40); Blood Urea Nitrogen 6 mg/dL (8-23); Carbon Dioxide 24 mmol/L (22-29); Chloride 105 mmol/L (98-107); Globulin 3.2 g/dL (1.3-4.6); Glucose 115 mg/dL (65-115); Osmolality Calculated 283 mOsm/kg (285-295); Potassium 4.7 mmol/L (3.5-5.1); Sodium 137 mmol/L (136-145); Total Bilirubin 0.6 mg/dL (0.15-1.2); Total Protein 7.3 g/dL (6.6-8.7)
[2024-02-20] MEDS: denosumab 120 mg SDV SUBCUT (09:30)
[2024-02-20 09:34] VITALS: BP 144/82; PULSE 78; RESP 18; TEMP 36.8; O2SAT 95
[2024-03-19 09:55] LABS: Basophils # 0.1 10^3/uL (0.0-0.1); Basophils % 1.5 %; Eosinophils # 0.1 10^3/uL (0.0-0.8); Eosinophils % 1.9 %; Hematocrit 40.8 % (37-53); Lymphocytes # 1.8 10^3/uL (0.8-4.8); Mean Corpuscular HGB Conc 35.3 g/dL (30-55); Mean Corpuscular Hemoglobin 34.3 pg (27-33); Mean Corpuscular Volume 97.1 fl (82-101); Mean Platelet Volume 10.5 fL (7.4-10.4); Monocytes # 0.5 10^3/uL (0.2-0.9); Monocytes % 9.4 %; Neutrophils # 2.71 10^3/uL (1.8-7.7); Neutrophils % 51.8 %; Nucleated Red Blood Cells % 0 %; Platelet Count 193 10^3/cmm (157-399); Red Cell Distribution Width 11.6 % (12.1-15.1); White Blood Count 5.23 10^3/uL (3.29-11.43)
[2024-03-19 10:23] LABS: Alanine Aminotransferase 48 U/L (0-41); Albumin Level 4.2 g/dL (3.5-5.2); Alkaline Phosphatase 74 U/L (40-130); Anion Gap 13.3 (5-19); Aspartate Amino Transferase 30 U/L (0-40); Blood Urea Nitrogen 9 mg/dL (8-23); Calcium 8.9 mg/dL (8.5-10.5); Carbon Dioxide 25 mmol/L (22-29); Chloride 103 mmol/L (98-107); Glomerular Filtration Rate 112.1 mL/min (90-130); Glucose 121 mg/dL (65-115); Osmolality Calculated 284 mOsm/kg (285-295); Potassium 4.3 mmol/L (3.5-5.1); Sodium 137 mmol/L (136-145); Testosterone Total 19.6 ng/dL (193-740); Total Bilirubin 0.5 mg/dL (0.15-1.2); Total Protein 7.2 g/dL (6.6-8.7)
[2024-03-19] MEDS: denosumab 120 mg SDV SUBCUT (12:05)
[2024-03-19] MEDS: leuprolide 22.5 mg Kit IM (12:07)
== END 2024-03-19 23:59 | disposition home or self-care (01) ==
PROVIDERS: Internal Medicine; Nurse Practitioner Family; PCP Registered Nurse; Visit Provider Internal Medicine Medical Oncology
DX: Z53.9 Procedure and treatment not carried out, unspecified reason; Z51.11 Encounter for antineoplastic chemotherapy; C61 Malignant neoplasm of prostate; C79.51 Secondary malignant neoplasm of bone; F17.210 Nicotine dependence, cigarettes, uncomplicated; Z79.899 Other long term (current) drug therapy; Z79.818 Long term (current) use of other agents affecting estrogen receptors and estrogen levels
CPT/HCPCS: 36415; 80053; 84153; 84403; 85025; 96372; 96402; 99214; J0897; J9217

== ENCOUNTER 2024-04-16 13:46 | Oncology outpatient (recurring) (ONCR) | payer MEDICARE, SELFPAY ==
[2024-04-16 14:12] VITALS: BP 158/84; PULSE 87; RESP 18; TEMP 36.6; O2SAT 95
[2024-04-16] MEDS: denosumab 120 mg SDV SUBCUT (14:19)
== END 2024-04-19 23:59 | disposition home or self-care (01) ==
PROVIDERS: PCP Registered Nurse; Visit Provider Internal Medicine Medical Oncology
DX: Z51.11 Encounter for antineoplastic chemotherapy (principal); C61 Malignant neoplasm of prostate; C79.51 Secondary malignant neoplasm of bone
CPT/HCPCS: 96372; J0897

== ENCOUNTER 2024-05-14 13:35 | Oncology outpatient (recurring) (ONCR) | payer MEDICARE, SELFPAY ==
[2024-05-14] MEDS: denosumab 120 mg SDV SUBCUT (14:19)
[2024-05-14 14:22] VITALS: BP 136/83; PULSE 87; RESP 17; TEMP 36.5; O2SAT 95
== END 2024-05-19 23:59 | disposition home or self-care (01) ==
LOC: ONCMED 13:36
PROVIDERS: PCP Registered Nurse; Visit Provider Internal Medicine Medical Oncology
DX: C61 Malignant neoplasm of prostate; C79.51 Secondary malignant neoplasm of bone; Z79.620 Long term (current) use of immunosuppressive biologic
CPT/HCPCS: 96372; J0897

== ENCOUNTER → 2024-06-03 07:37 | Outpatient (BNVA) | payer MEDICARE, SELFPAY | PROVIDERS: PCP Registered Nurse; Referring Provider Internal Medicine; Visit Provider Psychiatry & Neurology Neurology | DX: Z86.73 Personal history of transient ischemic attack (TIA), and cerebral infarction without residual deficits (principal); I10 Essential (primary) hypertension; R90.89 Other abnormal findings on diagnostic imaging of central nervous system | CPT/HCPCS: 80061; 99202 ==

== ENCOUNTER 2024-06-11 13:04 | Oncology outpatient (recurring) (ONCR) | payer MEDICARE, SELFPAY ==
[2024-06-11 13:21] LABS: Basophils % 0.6 %; Hematocrit 40.8 % (37-53); Lymphocytes # 1.8 10^3/uL (0.8-4.8); Lymphocytes % 26.4 %; Mean Corpuscular HGB Conc 35.3 g/dL (30-55); Mean Corpuscular Hemoglobin 34.3 pg (27-33); Mean Corpuscular Volume 97.1 fl (82-101); Mean Platelet Volume 10.4 fL (7.4-10.4); Monocytes # 0.8 10^3/uL (0.2-0.9); Monocytes % 11.5 %; Neutrophils # 4.27 10^3/uL (1.8-7.7); Neutrophils % 61.2 %; Nucleated Red Blood Cells % 0 %; Platelet Count 183 10^3/cmm (157-399); Red Cell Distribution Width 11.3 % (12.1-15.1); White Blood Count 6.97 10^3/uL (3.29-11.43)
[2024-06-11 13:49] LABS: Alanine Aminotransferase 51 U/L (0-41); Albumin Level 4.1 g/dL (3.5-5.2); Alkaline Phosphatase 84 U/L (40-130); Anion Gap 19.2 (5-19); Aspartate Amino Transferase 36 U/L (0-40); Blood Urea Nitrogen 8 mg/dL (8-23); Calcium 9.1 mg/dL (8.5-10.5); Carbon Dioxide 20 mmol/L (22-29); Chloride 106 mmol/L (98-107); Globulin 3.3 g/dL (1.3-4.6); Glucose 99 mg/dL (65-115); Osmolality Calculated 290 mOsm/kg (285-295); Potassium 4.2 mmol/L (3.5-5.1); Sodium 141 mmol/L (136-145); Testosterone Total 21.3 ng/dL (193-740); Total Bilirubin 0.4 mg/dL (0.15-1.2); Total Protein 7.4 g/dL (6.6-8.7)
[2024-06-11 14:08] LABS: Creatinine Clr Calc Pharmacy 106.7345
[2024-06-11] MEDS: leuprolide 22.5 mg Kit IM (14:51)
[2024-06-11] MEDS: denosumab 120 mg SDV SUBCUT (14:51)
== END 2024-06-19 23:59 | disposition home or self-care (01) ==
PROVIDERS: Nurse Practitioner Family; PCP Registered Nurse; Visit Provider Internal Medicine Medical Oncology
DX: Z51.11 Encounter for antineoplastic chemotherapy (principal); C61 Malignant neoplasm of prostate; Z79.818 Long term (current) use of other agents affecting estrogen receptors and estrogen levels; Z79.899 Other long term (current) drug therapy; C79.51 Secondary malignant neoplasm of bone
CPT/HCPCS: 36415; 80053; 84153; 84403; 85025; 96372; 96402; 99214; J0897; J9217

== ENCOUNTER 2024-07-09 15:16 | Oncology outpatient (recurring) (ONCR) | payer MEDICARE, SELFPAY ==
[2024-07-09] MEDS: denosumab 120 mg SDV SUBCUT (15:59)
[2024-07-09 16:02] LABS: Blood Urea Nitrogen 8 mg/dL (8-23); Calcium 8.7 mg/dL (8.5-10.5); Carbon Dioxide 23 mmol/L (22-29); Chloride 105 mmol/L (98-107); Glucose 91 mg/dL (65-115); Osmolality Calculated 288 mOsm/kg (285-295); Sodium 140 mmol/L (136-145)
== END 2024-07-25 09:16 | disposition home or self-care (01) ==
LOC: ONCMED 15:17
PROVIDERS: Nurse Practitioner Family; PCP Registered Nurse; Visit Provider Internal Medicine Medical Oncology
DX: C61 Malignant neoplasm of prostate; C79.51 Secondary malignant neoplasm of bone; Z79.818 Long term (current) use of other agents affecting estrogen receptors and estrogen levels; Z79.899 Other long term (current) drug therapy
CPT/HCPCS: 36415; 80048; 96372; J0897

== ENCOUNTER 2024-08-12 09:17 | Oncology outpatient (recurring) (ONCR) | payer MEDICARE, SELFPAY ==
[2024-08-12 09:37] VITALS: BP 161/85; PULSE 69; RESP 18; TEMP 36.9; O2SAT 98
[2024-08-12] MEDS: denosumab 120 mg SDV SUBCUT (09:52)
== END 2024-08-19 23:59 | disposition home or self-care (01) ==
PROVIDERS: PCP Registered Nurse; Visit Provider Internal Medicine Medical Oncology
DX: C61 Malignant neoplasm of prostate; C79.51 Secondary malignant neoplasm of bone; Z79.899 Other long term (current) drug therapy
CPT/HCPCS: 96372; J0897

== ENCOUNTER 2024-09-10 11:45 | Oncology outpatient (recurring) (ONCR) | payer MEDICARE, SELFPAY ==
[2024-09-03 13:22] LABS: Basophils # 0.1 10^3/uL (0.0-0.1); Basophils % 0.7 %; Hematocrit 40.3 % (37-53); Lymphocytes # 1.9 10^3/uL (0.8-4.8); Lymphocytes % 27.3 %; Mean Corpuscular HGB Conc 34.7 g/dL (30-55); Mean Corpuscular Hemoglobin 33.9 pg (27-33); Mean Corpuscular Volume 97.6 fl (82-101); Mean Platelet Volume 10.4 fL (7.4-10.4); Monocytes # 0.8 10^3/uL (0.2-0.9); Monocytes % 10.9 %; Neutrophils # 4.26 10^3/uL (1.8-7.7); Neutrophils % 60.8 %; Nucleated Red Blood Cells % 0 %; Platelet Count 176 10^3/cmm (157-399); Red Blood Count 4.13 10^6/uL (3.85-5.65); Red Cell Distribution Width 11.4 % (12.1-15.1)
[2024-09-03 13:52] LABS: Alanine Aminotransferase 42 U/L (0-41); Albumin Level 4.2 g/dL (3.5-5.2); Alkaline Phosphatase 85 U/L (40-130); Anion Gap 15.9 (5-19); Aspartate Amino Transferase 38 U/L (0-40); Blood Urea Nitrogen 9 mg/dL (8-23); Calcium 8.7 mg/dL (8.5-10.5); Carbon Dioxide 21 mmol/L (22-29); Chloride 103 mmol/L (98-107); Globulin 2.8 g/dL (1.3-4.6); Glomerular Filtration Rate 133.6 mL/min (90-130); Glucose 91 mg/dL (65-115); Osmolality Calculated 280 mOsm/kg (285-295); Potassium 3.9 mmol/L (3.5-5.1); Sodium 136 mmol/L (136-145); Testosterone Total 22.3 ng/dL (193-740); Total Bilirubin 0.4 mg/dL (0.15-1.2)
[2024-09-03 14:00] LABS: Creatinine Clr Calc Pharmacy 107.2647
[2024-09-03] MEDS: leuprolide 22.5 mg Kit IM (15:32)
[2024-09-10] MEDS: denosumab 120 mg SDV SUBCUT (11:56)
== END 2024-09-19 23:59 | disposition home or self-care (01) ==
PROVIDERS: Nurse Practitioner Family; PCP Registered Nurse; Visit Provider Internal Medicine Hematology & Oncology
DX: Z51.11 Encounter for antineoplastic chemotherapy (principal); C61 Malignant neoplasm of prostate; C79.51 Secondary malignant neoplasm of bone; Z79.899 Other long term (current) drug therapy; Z53.9 Procedure and treatment not carried out, unspecified reason
CPT/HCPCS: 36415; 80053; 84153; 84403; 85025; 96372; 96402; 99214; J0897; J9217

== ENCOUNTER 2024-09-27 08:05 | Oncology outpatient (recurring) (ONCR) | payer MEDICARE, SELFPAY ==
[2024-09-27 08:34] LABS: Basophils # 0.1 10^3/uL (0.0-0.1); Basophils % 0.7 %; Eosinophils % 0.1 %; Hematocrit 41.1 % (37-53); Lymphocytes # 1.6 10^3/uL (0.8-4.8); Lymphocytes % 22.6 %; Mean Corpuscular HGB Conc 34.8 g/dL (30-55); Mean Corpuscular Volume 97.9 fl (82-101); Mean Platelet Volume 10.2 fL (7.4-10.4); Monocytes # 0.7 10^3/uL (0.2-0.9); Monocytes % 9.9 %; Neutrophils # 4.59 10^3/uL (1.8-7.7); Neutrophils % 66.3 %; Nucleated Red Blood Cells % 0 %; Platelet Count 212 10^3/cmm (157-399); Red Cell Distribution Width 11.3 % (12.1-15.1); White Blood Count 6.94 10^3/uL (3.29-11.43)
[2024-09-27 09:09] LABS: Alanine Aminotransferase 44 U/L (0-41); Albumin Level 4.2 g/dL (3.5-5.2); Alkaline Phosphatase 93 U/L (40-130); Anion Gap 14.9 (5-19); Aspartate Amino Transferase 37 U/L (0-40); Blood Urea Nitrogen 8 mg/dL (8-23); Calcium 8.5 mg/dL (8.5-10.5); Carbon Dioxide 24 mmol/L (22-29); Chloride 99 mmol/L (98-107); Creatinine Clr Calc Pharmacy 106.5937; Globulin 3.1 g/dL (1.3-4.6); Glomerular Filtration Rate 111.8 mL/min (90-130); Glucose 181 mg/dL (65-115); Osmolality Calculated 281 mOsm/kg (285-295); Potassium 3.9 mmol/L (3.5-5.1); Sodium 134 mmol/L (136-145); Testosterone Total 23.4 ng/dL (193-740); Total Bilirubin 0.4 mg/dL (0.15-1.2); Total Protein 7.3 g/dL (6.6-8.7)
== END 2024-10-19 23:59 | disposition home or self-care (01) ==
PROVIDERS: PCP Registered Nurse; Visit Provider Internal Medicine Hematology & Oncology
DX: C61 Malignant neoplasm of prostate; C79.51 Secondary malignant neoplasm of bone; Z79.818 Long term (current) use of other agents affecting estrogen receptors and estrogen levels; Z79.899 Other long term (current) drug therapy; C77.5 Secondary and unspecified malignant neoplasm of intrapelvic lymph nodes; F17.210 Nicotine dependence, cigarettes, uncomplicated
CPT/HCPCS: 36415; 80053; 84153; 84403; 85025; 99214

== ENCOUNTER → 2024-10-04 07:54 | Outpatient (BNVA) | payer MEDICARE, SELFPAY | PROVIDERS: PCP Registered Nurse; Referring Provider Internal Medicine Hematology & Oncology; Visit Provider Surgery | DX: R03.0 Elevated blood-pressure reading, without diagnosis of hypertension (principal); C61 Malignant neoplasm of prostate; C79.51 Secondary malignant neoplasm of bone | CPT/HCPCS: 99204 ==

== ENCOUNTER 2024-10-10 06:44 | Day surgery (SDC) | payer MEDICARE, SELFPAY ==
[2024-10-10] VITALS (7 sets, daily range): BP systolic 125–159; BP diastolic 73–85; PULSE 77–96; RESP 16–18; TEMP 36.3–36.6; O2SAT 91–96; BMI 29.8
--- NOTE | 2024-10-10 06:58 | SC_ITS ---
WS: [email or web address] Exam: C-arm [place] for CVA [id number] Date/Time of Exam: 10/10/2024 6:58 AM Reason For Exam: The patient was taken to the Operating Room and the chest an AP C arm images of the upper chest are obtained for intraoperative visualization purposes.
--- NOTE | 2024-10-10 06:58 | XR_ITS ---
WS: [email or web address] Exam: XR chest 1V portable [id number] Date/Time of Exam: 10/10/2024 6:58 AM Reason For Exam: Status post Mediport placement No previous exams. The lungs are fully expanded. A LEFT subclavian port ends in the lower one third of the SVC. Ill-defi desire soft tissue density seen in the RIGHT lower lung zone that may represent a lung mass. There are a lso several scattered ill-defined nodules in both lungs. Normal cardiomediastinal silhouette. No pleu ral effusions. No consolidated infiltrates. Several sclerotic bone lesions involve the RIGHT and LEFT ribs. This apparently represents known skeletal metastasis. Recommendations: Contrast CT scanning of the chest might be considered for further work-up. XR/XR chest 1V portable [id number] IMPRESSION: 1. Ill-defined soft tissue density in the RIGHT lower lung zone that may repres ent a pulmonary mass. There are also several scattered ill-defined nodular dens ities in both lungs. 2. Left-sided port in satisfactory location. 3. Several sclerotic bone lesions in the bilateral ribs. This apparently repres ents known bone metastasis.
--- NOTE | 2024-10-10 07:06 | P.HPUD_ITS ---
Surgery/Procedure H&P Update DATE OF PROCEDURE: October 10, 2024 DATE H&P PERFORMED: 09/27/24 H&P UPDATE INFORMATION: I have reviewed H&P completed within last 30 days, I have examined patient prior to procedure and No changes to prior documentation PLANNED PROCEDURE: Operation Date: 10/10/24 08:15 Proposed Procedures p Portacath Placement - 85221, C61.00 , C79.51(Not Applicable) - Ramon rowe, DO
[2024-10-10] MEDS: sodium chloride 0.9% 1,000 ML 30 ML IV (07:17)
--- NOTE | 2024-10-10 07:22 | ANES.PREANE2 ---
Pre-Anesthetic Assessment Height/Weight: Height 1.83 m Weight 99.79 kg Temp Pulse Resp BP Pulse Ox O2 Del Method 97.4 F L 96 18 159/85 96 Room Air 10/10/24 07:02 10/10/24 07:02 10/10/24 07:02 10/10/24 07:02 10/10/24 07:02 10/10/24 07:06 Operation Date: 10/10/24 08:15 Proposed Procedures p Portacath Placement - 05141, C61.00 , C79.51(Not Applicable) - Ramon Marin DO Familial anesthetic complications: None Was Beta Haley taken within 24 hours: N/A Was Clonidine taken within 24 hours: N/A Last intake: Intake Last Liquid Date 10/09/24 Last Liquid Time 23:59 Last Solid Date 10/09/24 Last Solid Time 19:00 Social Alcohol (6-8 beers a night) and Tobacco Exam alert, oriented x 3, clear to auscultation bilaterally and regular rate & rhythm Airway Mallampati: Class II Dentition: other (missing teeth) Metabolic Hyperlipidemia Neuropsych Cerebrovascular Accident Anesthetic Plan ASA status: 3 Anesthesia: MAC Risk of > 500 ml blood loss (7ml/kg in children): No Medications/Allergies Home Medications Medication Instructions Recorded Confirmed Last Taken Type oxycodone 5 mg capsule 5 mg PO BID PRN Pain 06/15/23 10/09/24 10/09/24 History aspirin 81 mg tablet,delayed 81 mg PO DAILY #30 tabs 06/03/24 10/09/24 10/09/24 Rx release rosuvastatin 20 mg tablet 20 mg PO DAILY #30 tabs 06/03/24 10/09/24 10/09/24 Rx tamsulosin 0.4 mg capsule 0.4 mg PO BID #60 caps 07/12/24 10/09/24 10/09/24 Rx enzalutamide 40 mg tablet 160 mg (4 x 40 mg) PO DAILY #120 09/02/24 10/09/24 10/09/24 Rx tabs Allergies Allergy/AdvReac Type Severity Reaction Status Date / Time No Known Allergies Allergy Verified 09/27/24 08:11 Current Medications Generic Name Dose Route Start Last Admin Trade Name Freq PRN Reason Stop Dose Admin Sodium Chloride 1,000 mls @ 30 mls/hr 10/10/24 07:00 10/10/24 07:17 Sodium Chloride 0.9% IV 10/11/24 06:59 30 mls/hr .Q24H RICARDO Administration PFSH Anesthesia Medical History Prostate cancer metastatic to bone Surgical History History of hernia surgery November 2016 Family History Mother Cancer Father Cancer lung Lung disease Lung cancer Sister Cancer Grandfather Diabetes Denies family history of CAD (coronary artery disease) Clotting disorder Dementia Hyperlipidemia Psychiatric illness Chronic kidney disease (CKD) Suicide Anesthesia complication Bleeding disorder Hypertension Stroke Social History Smoking and tobacco/nicotine status: heavy tobacco/nicotine user cigarettes Packs smoked per day: 2 Years cigarettes smoked: 50 [ Other cigarette details: smoked 50+ years] Alcohol intake: current Alcohol intake frequency: 3 or more drinks per day Data Anesthesia Cardiac Studies: No Data to Display
[2024-10-10] MEDS: ceFAZolin 2,000 mg SDV 2000 MG IVP (08:23)
[2024-10-10] MEDS: lidocaine-epi 2% PF 1:200,000 20 mL SDV XX (08:44)
[2024-10-10] MEDS: heparin, porcine 1,000 unit/mL INJ 10 mL 10000 UNIT IRRIGATION (08:45)
--- NOTE | 2024-10-10 09:03 | PM.OP ---
Operative Report Date of procedure: October 10, 2024 Surgeon: Ramon Marin DO Procedure: Pre-op diagnosis: Prostate cancer Post-op diagnosis: same Procedure done: Mediport placement Intraoperative interpretation of fluoroscopy Implants: PowerPort Specimens removed/disposition: None Surgeon: Ramon Marin DO Anesthesia: MAC and Local Estimated blood loss (mL): 5 Complications: None apparent Procedure: The patient was taken to the operating room and placed supine on the operating room table. All bony prominences were padded. She was given IV sedation and monitored throughout the case by the anesthesia personnel. SCDs were placed and turned on. The arms were tucked to the side. Patient received Ancef 2 g preoperatively IV. The bilateral chest wall was prepped and draped in usual sterile fashion using chlorhexidine base prep. Sterile drapes were applied. We did procedure pause prior to beginning. An 18 gauge needle was placed in the left subclavian vein. Dark, nonpulsatile blood was aspirated. A guidewire was placed through the needle centrally toward the atrial/vena caval junction. Fluoroscopy visualized good placement. The needle was removed and the guidewire was clipped to the drape with a hemostat. Further local anesthetic was infiltrated in the soft tissues of the left chest wall and a #15 blade was used to make a horizontal skin incision. A subcutaneous Mediport pocket was created using Bovie cautery, dissecting down through the skin and subcutaneous tissues. Meticulous hemostasis was achieved. The Mediport was sutured in position using 3-0 vicryl suture x2 stitches. A #15 blade was used to make a small skin carolyn around the guidewire insertion area. The Mediport tubing was tunneled through the subcutaneous tissues up to the needle insertion location. A dilator with a peel-away sheath was placed over the guidewire and placed centrally. After measuring the Mediport tubing was cut to length so that the tip would end at the atrial/vena caval junction. The inner cannula and the guidewire were removed, leaving the dilator sheath in place. The Mediport was flushed. The tip of the catheter was inserted through the peel-away sheath and the peel-away sheath removed in the standard fashion. The Mediport was accessed with a straight Marquez needle and dark, nonpulsatile blood was aspirated and flushed using heparinized saline to hep-lock the Mediport. Final fluoroscopy visualization showed no kink in the catheter and the tip of the Mediport tubing near the atrial/vena caval junction. There is no obvious pneumothorax. Both skin incisions were thoroughly irrigated and suctioned dry. Meticulous hemostasis noted. The dermis was approximated with 3-0 Vicryl in an interrupted fashion. Skin was closed with Dermabond. Patient was awakened from anesthesia and transferred via her cart to the recovery room in stable condition. All needle, sponge, and instrument counts were correct per the operating personnel x2 counts.
--- NOTE | 2024-10-10 10:05 | ANE.PACU2 ---
Inpatient post-anesthesia follow up: Airway intact: Yes Vital signs: Temperature 97.9 F Pulse Rate 77 Respiratory Rate 18 Blood Pressure 140/76 Pulse Oximetry 94 Oxygen Delivery Me thod Room Air Oxygen Flow Rate Fraction of Inspir ed Oxygen Hydration adequate: Yes Nausea and vomiting: No Pain level: 1 Mental status: Baseline
== END 2024-10-10 10:08 | disposition home or self-care (01) ==
PROVIDERS: PCP Registered Nurse; Visit Provider Surgery
PROC: (CPT 36561; principal; 2024-10-10 08:15)
DX: C61 Malignant neoplasm of prostate (principal); E78.5 Hyperlipidemia, unspecified; Z86.73 Personal history of transient ischemic attack (TIA), and cerebral infarction without residual deficits; Z79.82 Long term (current) use of aspirin; F17.210 Nicotine dependence, cigarettes, uncomplicated
CPT/HCPCS: 36561; 71045; 76000; 77001; C1788; J0690; J1100; J1200; J1644; J1885; J2250; J2405; J2704; J3010; J3490; J7030

== ENCOUNTER → 2024-10-25 09:19 | Outpatient (BNVA) | payer MEDICARE, SELFPAY | PROVIDERS: PCP Registered Nurse; Visit Provider Surgery | DX: Z95.828 Presence of other vascular implants and grafts (principal) | CPT/HCPCS: 99214 ==

== ENCOUNTER 2024-11-11 12:45 | Oncology outpatient (recurring) (ONCR) | payer MEDICARE, SELFPAY ==
[2024-10-23 08:11] LABS: Basophils % 0.5 %; Hematocrit 41.2 % (37-53); Lymphocytes # 1.1 10^3/uL (0.8-4.8); Lymphocytes % 17.1 %; Mean Corpuscular HGB Conc 34.5 g/dL (30-55); Mean Corpuscular Hemoglobin 33.2 pg (27-33); Mean Corpuscular Volume 96.3 fl (82-101); Monocytes # 0.2 10^3/uL (0.2-0.9); Monocytes % 3.1 %; Neutrophils # 5.17 10^3/uL (1.8-7.7); Neutrophils % 78.8 %; Nucleated Red Blood Cells % 0 %; Platelet Count 215 10^3/cmm (157-399); Red Blood Count 4.28 10^6/uL (3.85-5.65); Red Cell Distribution Width 11.5 % (12.1-15.1); White Blood Count 6.55 10^3/uL (3.29-11.43)
[2024-10-23 08:44] LABS: Alanine Aminotransferase 29 U/L (0-41); Albumin Level 4.2 g/dL (3.5-5.2); Alkaline Phosphatase 87 U/L (40-130); Anion Gap 18.2 (5-19); Aspartate Amino Transferase 20 U/L (0-40); Blood Urea Nitrogen 9 mg/dL (8-23); Calcium 8.8 mg/dL (8.5-10.5); Carbon Dioxide 22 mmol/L (22-29); Chloride 102 mmol/L (98-107); Creatinine Clr Calc Pharmacy 106.8175; Globulin 3.2 g/dL (1.3-4.6); Glomerular Filtration Rate 133.6 mL/min (90-130); Glucose 149 mg/dL (65-115); Lactate Dehydrogenase 197 U/L (135-225); Osmolality Calculated 287 mOsm/kg (285-295); Potassium 4.2 mmol/L (3.5-5.1); Sodium 138 mmol/L (136-145); Testosterone Total 2.5 ng/dL (193-740); Total Bilirubin 0.4 mg/dL (0.15-1.2); Total Protein 7.4 g/dL (6.6-8.7)
[2024-10-23] MEDS: sodium chloride 0.9% 250 ML 50 ML IV (10:55)
[2024-10-23] MEDS: diphenhydrAMINE 50 mg/mL SDV 1mL 25 MG IVP (10:59)
[2024-10-23] MEDS: famotidine 20 mg/2 mL INJ IVP (11:02)
[2024-10-23] MEDS: palonosetron 0.25 mg/5 mL SDV IVP (11:05)
[2024-10-23] MEDS: dexamethasone 4 mg/mL INJ 5 mL 12 MG IVP (11:09)
[2024-10-23] MEDS: [UNRECOGNIZED DRUG - REMARK] 266.7 MG IV (11:43)
[2024-10-23 12:45] VITALS: BP 146/74; PULSE 78; RESP 17; TEMP 36.6; O2SAT 98
[2024-10-30 12:45] VITALS: BP 124/78; PULSE 78; RESP 18; TEMP 36.6; O2SAT 98
[2024-10-30 12:48] LABS: Basophils % 1.8 %; Hematocrit 37.9 % (37-53); Lymphocytes # 0.9 10^3/uL (0.8-4.8); Lymphocytes % 55.4 %; Mean Corpuscular HGB Conc 35.1 g/dL (30-55); Mean Corpuscular Hemoglobin 34.1 pg (27-33); Mean Corpuscular Volume 97.2 fl (82-101); Mean Platelet Volume 11.4 fL (7.4-10.4); Monocytes # 0.1 10^3/uL (0.2-0.9); Monocytes % 4.8 %; Nucleated Red Blood Cells % 0 %; Platelet Count 147 10^3/cmm (157-399); Red Cell Distribution Width 11.3 % (12.1-15.1); White Blood Count 1.68 10^3/uL (3.29-11.43)
[2024-10-30 13:06] LABS: Alanine Aminotransferase 39 U/L (0-41); Albumin Level 4.1 g/dL (3.5-5.2); Alkaline Phosphatase 77 U/L (40-130); Anion Gap 14.8 (5-19); Aspartate Amino Transferase 27 U/L (0-40); Blood Urea Nitrogen 11 mg/dL (8-23); Calcium 8.8 mg/dL (8.5-10.5); Carbon Dioxide 23 mmol/L (22-29); Chloride 100 mmol/L (98-107); Creatinine Clr Calc Pharmacy 105.9231; Globulin 3.1 g/dL (1.3-4.6); Glomerular Filtration Rate 133.6 mL/min (90-130); Glucose 119 mg/dL (65-115); Osmolality Calculated 279 mOsm/kg (285-295); Potassium 3.8 mmol/L (3.5-5.1); Sodium 134 mmol/L (136-145); Total Bilirubin 0.5 mg/dL (0.15-1.2); Total Protein 7.2 g/dL (6.6-8.7)
[2024-10-30 13:10] LABS: Neutrophils # 0.64 10^3/uL (1.8-7.7)
[2024-10-30 13:12] LABS: Slide Review Slide Review Perform
[2024-11-11 12:48] LABS: Basophils # 0.1 10^3/uL (0.0-0.1); Basophils % 0.9 %; Hematocrit 39.2 % (37-53); Lymphocytes # 1.8 10^3/uL (0.8-4.8); Lymphocytes % 17.7 %; Mean Corpuscular HGB Conc 33.4 g/dL (30-55); Mean Corpuscular Hemoglobin 32.4 pg (27-33); Mean Platelet Volume 9.9 fL (7.4-10.4); Monocytes # 0.8 10^3/uL (0.2-0.9); Monocytes % 7.7 %; Neutrophils # 7.31 10^3/uL (1.8-7.7); Neutrophils % 72.8 %; Nucleated Red Blood Cells % 0 %; Platelet Count 230 10^3/cmm (157-399); Red Blood Count 4.04 10^6/uL (3.85-5.65); Red Cell Distribution Width 11.8 % (12.1-15.1); White Blood Count 10.04 10^3/uL (3.29-11.43)
[2024-11-11 13:04] LABS: Alanine Aminotransferase 33 U/L (0-41); Alkaline Phosphatase 77 U/L (40-130); Anion Gap 15.2 (5-19); Aspartate Amino Transferase 23 U/L (0-40); Blood Urea Nitrogen 8 mg/dL (8-23); Calcium 8.8 mg/dL (8.5-10.5); Carbon Dioxide 23 mmol/L (22-29); Chloride 103 mmol/L (98-107); Creatinine Clr Calc Pharmacy 105.6993; Globulin 2.8 g/dL (1.3-4.6); Glomerular Filtration Rate 133.6 mL/min (90-130); Glucose 94 mg/dL (65-115); Osmolality Calculated 282 mOsm/kg (285-295); Potassium 4.2 mmol/L (3.5-5.1); Sodium 137 mmol/L (136-145); Total Bilirubin 0.2 mg/dL (0.15-1.2); Total Protein 6.8 g/dL (6.6-8.7)
[2024-11-11] MEDS: sodium chloride 0.9% 250 ML 75 ML IV (13:41)
[2024-11-11] MEDS: diphenhydrAMINE 50 mg/mL SDV 1mL 25 MG IVP (13:42)
[2024-11-11] MEDS: dexamethasone 4 mg/mL INJ 5 mL 12 MG IVP (13:47)
[2024-11-11] MEDS: famotidine 20 mg/2 mL INJ IVP (13:49)
[2024-11-11] MEDS: palonosetron 0.25 mg/5 mL SDV IVP (13:50)
[2024-11-11] MEDS: [UNRECOGNIZED DRUG - REMARK] 266.7 MG IV (14:28)
[2024-11-11 16:00] VITALS: BP 142/78; PULSE 74; RESP 17; TEMP 36.6; O2SAT 97
[2024-11-11] MEDS: pegfilgrastim 6 mg/0.6 mL Kit (onpro) SUBCUT (16:04)
== END 2024-11-19 23:59 | disposition home or self-care (01) ==
PROVIDERS: Internal Medicine Hematology & Oncology; PCP Registered Nurse; Visit Provider Nurse Practitioner Family
DX: Z53.9 Procedure and treatment not carried out, unspecified reason (principal); Z51.11 Encounter for antineoplastic chemotherapy; C61 Malignant neoplasm of prostate; C79.51 Secondary malignant neoplasm of bone; Z95.828 Presence of other vascular implants and grafts; Z79.52 Long term (current) use of systemic steroids; F17.210 Nicotine dependence, cigarettes, uncomplicated; D70.1 Agranulocytosis secondary to cancer chemotherapy; T45.1X5A Adverse effect of antineoplastic and immunosuppressive drugs, initial encounter; Z79.899 Other long term (current) drug therapy
CPT/HCPCS: 36591; 80053; 83615; 84153; 84403; 85025; 96375; 96377; 96413; 99214; 99215; J1100; J1200; J2469; J2506; J3490; J7050; J9171

== ENCOUNTER 2024-12-02 07:48 | Oncology outpatient (recurring) (ONCR) | payer MEDICARE, SELFPAY ==
[2024-12-02 08:22] LABS: Basophils # 0.1 10^3/uL (0.0-0.1); Basophils % 0.6 %; Lymphocytes # 1.2 10^3/uL (0.8-4.8); Lymphocytes % 13.3 %; Mean Corpuscular HGB Conc 34.2 g/dL (30-55); Mean Corpuscular Hemoglobin 33.8 pg (27-33); Mean Corpuscular Volume 98.9 fl (82-101); Mean Platelet Volume 9.9 fL (7.4-10.4); Monocytes # 0.8 10^3/uL (0.2-0.9); Monocytes % 8.7 %; Neutrophils # 6.64 10^3/uL (1.8-7.7); Neutrophils % 76.9 %; Nucleated Red Blood Cells % 0 %; Platelet Count 222 10^3/cmm (157-399); Red Blood Count 3.64 10^6/uL (3.85-5.65); Red Cell Distribution Width 13.2 % (12.1-15.1); White Blood Count 8.63 10^3/uL (3.29-11.43)
[2024-12-02 08:47] LABS: Alanine Aminotransferase 23 U/L (0-41); Albumin Level 3.9 g/dL (3.5-5.2); Alkaline Phosphatase 81 U/L (40-130); Anion Gap 14.9 (5-19); Aspartate Amino Transferase 15 U/L (0-40); Blood Urea Nitrogen 6 mg/dL (8-23); Calcium 8.5 mg/dL (8.5-10.5); Carbon Dioxide 22 mmol/L (22-29); Chloride 106 mmol/L (98-107); Creatinine Clr Calc Pharmacy 106.1465; Globulin 2.4 g/dL (1.3-4.6); Glomerular Filtration Rate 164.9 mL/min (90-130); Glucose 121 mg/dL (65-115); Osmolality Calculated 287 mOsm/kg (285-295); Potassium 3.9 mmol/L (3.5-5.1); Sodium 139 mmol/L (136-145); Total Bilirubin 0.4 mg/dL (0.15-1.2); Total Protein 6.3 g/dL (6.6-8.7)
[2024-12-02] MEDS: sodium chloride 0.9% 250 ML 75 ML IV (09:09)
[2024-12-02] MEDS: famotidine 20 mg/2 mL INJ IVP (09:11)
[2024-12-02] MEDS: palonosetron 0.25 mg/5 mL SDV IVP (09:13)
[2024-12-02] MEDS: dexamethasone 4 mg/mL INJ 5 mL 12 MG IVP (09:15)
[2024-12-02] MEDS: diphenhydrAMINE 50 mg/mL SDV 1mL 25 MG IVP (09:19)
[2024-12-02] MEDS: leuprolide 22.5 mg Kit IM (09:29)
[2024-12-02] MEDS: [UNRECOGNIZED DRUG - REMARK] 266.7 MG IV (09:57)
[2024-12-02] MEDS: pegfilgrastim 6 mg/0.6 mL Kit (onpro) SUBCUT (11:16)
== END 2024-12-20 23:59 | disposition home or self-care (01) ==
PROVIDERS: PCP Registered Nurse; Visit Provider Internal Medicine Medical Oncology
DX: Z51.11 Encounter for antineoplastic chemotherapy (principal); C61 Malignant neoplasm of prostate; C79.51 Secondary malignant neoplasm of bone; C77.5 Secondary and unspecified malignant neoplasm of intrapelvic lymph nodes; D70.1 Agranulocytosis secondary to cancer chemotherapy; Z79.818 Long term (current) use of other agents affecting estrogen receptors and estrogen levels; Z79.899 Other long term (current) drug therapy; Z79.52 Long term (current) use of systemic steroids; F17.210 Nicotine dependence, cigarettes, uncomplicated; T45.1X5A Adverse effect of antineoplastic and immunosuppressive drugs, initial encounter; X58.XXXA Exposure to other specified factors, initial encounter
CPT/HCPCS: 80053; 84153; 85025; 96375; 96377; 96402; 96413; 99212; 99214; J1100; J1200; J2469; J2506; J3490; J7050; J9171; J9217

== ENCOUNTER 2025-01-13 08:00 | Oncology outpatient (recurring) (ONCR) | payer MEDICARE, SELFPAY ==
[2024-12-23 08:11] LABS: Basophils % 0.1 %; Eosinophils % 0.1 %; Hematocrit 34.1 % (37-53); Lymphocytes # 1.1 10^3/uL (0.8-4.8); Lymphocytes % 11.5 %; Mean Corpuscular HGB Conc 32.8 g/dL (30-55); Mean Corpuscular Hemoglobin 32.9 pg (27-33); Mean Corpuscular Volume 100.3 fl (82-101); Monocytes # 0.6 10^3/uL (0.2-0.9); Monocytes % 5.8 %; Neutrophils # 8.05 10^3/uL (1.8-7.7); Neutrophils % 82.1 %; Nucleated Red Blood Cells % 0 %; Platelet Count 236 10^3/cmm (157-399); White Blood Count 9.81 10^3/uL (3.29-11.43)
[2024-12-23 08:38] LABS: Alanine Aminotransferase 23 U/L (0-41); Albumin Level 3.9 g/dL (3.5-5.2); Alkaline Phosphatase 77 U/L (40-130); Anion Gap 19.1 (5-19); Aspartate Amino Transferase 16 U/L (0-40); Blood Urea Nitrogen 14 mg/dL (8-23); Calcium 8.5 mg/dL (8.5-10.5); Carbon Dioxide 20 mmol/L (22-29); Chloride 105 mmol/L (98-107); Creatinine Clr Calc Pharmacy 13.9781; Globulin 2.4 g/dL (1.3-4.6); Glomerular Filtration Rate 111.8 mL/min (90-130); Glucose 100 mg/dL (65-115); Osmolality Calculated 291 mOsm/kg (285-295); Potassium 4.1 mmol/L (3.5-5.1); Sodium 140 mmol/L (136-145); Total Bilirubin 0.2 mg/dL (0.15-1.2); Total Protein 6.3 g/dL (6.6-8.7)
[2024-12-23] MEDS: sodium chloride 0.9% 250 ML 75 ML IV (09:50)
[2024-12-23] MEDS: famotidine 20 mg/2 mL INJ IVP (09:52)
[2024-12-23] MEDS: diphenhydrAMINE 50 mg/mL SDV 1mL 25 MG IVP (09:55)
[2024-12-23] MEDS: palonosetron 0.25 mg/5 mL SDV IVP (09:59)
[2024-12-23] MEDS: dexamethasone 4 mg/mL INJ 5 mL 12 MG IVP (10:02)
[2024-12-23] MEDS: [UNRECOGNIZED DRUG - REMARK] 266.9 MG IV (10:23)
[2024-12-23 11:38] VITALS: BP 132/77; PULSE 72; RESP 18; TEMP 36.5; O2SAT 93
[2025-01-13 08:17] LABS: Basophils % 0.1 %; Eosinophils % 0.1 %; Hematocrit 35.6 % (37-53); Lymphocytes # 1.3 10^3/uL (0.8-4.8); Lymphocytes % 8.8 %; Mean Corpuscular HGB Conc 33.1 g/dL (30-55); Mean Corpuscular Hemoglobin 33.4 pg (27-33); Mean Corpuscular Volume 100.8 fl (82-101); Mean Platelet Volume 9.4 fL (7.4-10.4); Monocytes # 0.7 10^3/uL (0.2-0.9); Monocytes % 4.8 %; Neutrophils # 12.14 10^3/uL (1.8-7.7); Neutrophils % 85.3 %; Nucleated Red Blood Cells % 0 %; Platelet Count 240 10^3/cmm (157-399); Red Blood Count 3.53 10^6/uL (3.85-5.65); Red Cell Distribution Width 14.6 % (12.1-15.1); White Blood Count 14.25 10^3/uL (3.29-11.43)
[2025-01-13 08:45] LABS: Alanine Aminotransferase 16 U/L (0-41); Albumin Level 3.9 g/dL (3.5-5.2); Alkaline Phosphatase 56 U/L (40-130); Aspartate Amino Transferase 11 U/L (0-40); Blood Urea Nitrogen 10 mg/dL (8-23); Calcium 8.7 mg/dL (8.5-10.5); Carbon Dioxide 21 mmol/L (22-29); Chloride 107 mmol/L (98-107); Creatinine Clr Calc Pharmacy 108.1591; Globulin 2.6 g/dL (1.3-4.6); Glomerular Filtration Rate 133.6 mL/min (90-130); Glucose 126 mg/dL (65-115); Osmolality Calculated 287 mOsm/kg (285-295); Sodium 138 mmol/L (136-145); Total Bilirubin 0.3 mg/dL (0.15-1.2); Total Protein 6.5 g/dL (6.6-8.7)
[2025-01-13 09:34] VITALS: BP 135/77; PULSE 73; RESP 17; TEMP 36.3; O2SAT 95
[2025-01-13] MEDS: famotidine 20 mg/2 mL INJ IVP (10:03)
[2025-01-13] MEDS: dexamethasone 4 mg/mL INJ 5 mL 12 MG IVP (10:05)
[2025-01-13] MEDS: diphenhydrAMINE 50 mg/mL SDV 1mL 25 MG IVP (10:08)
[2025-01-13] MEDS: palonosetron 0.25 mg/5 mL SDV IVP (10:09)
[2025-01-13] MEDS: [UNRECOGNIZED DRUG - REMARK] 266.7 MG IV (10:55)
[2025-01-13 12:05] VITALS: BP 134/82; PULSE 69; RESP 18; TEMP 36.1; O2SAT 95
== END 2025-01-17 23:59 | disposition home or self-care (01) ==
PROVIDERS: PCP Registered Nurse; Visit Provider Internal Medicine Medical Oncology
DX: Z53.9 Procedure and treatment not carried out, unspecified reason (principal); Z51.11 Encounter for antineoplastic chemotherapy; C61 Malignant neoplasm of prostate; C79.51 Secondary malignant neoplasm of bone; D70.9 Neutropenia, unspecified; G89.3 Neoplasm related pain (acute) (chronic); D70.1 Agranulocytosis secondary to cancer chemotherapy; T45.1X5A Adverse effect of antineoplastic and immunosuppressive drugs, initial encounter; Z79.52 Long term (current) use of systemic steroids; Z79.899 Other long term (current) drug therapy; Z71.6 Tobacco abuse counseling
CPT/HCPCS: 80053; 84153; 85025; 96375; 96413; 99214; J1100; J1200; J2469; J3490; J7050; J9171

== ENCOUNTER 2025-02-03 09:15 | Oncology outpatient (recurring) (ONCR) | payer MEDICARE, SELFPAY ==
--- NOTE | 2025-01-21 14:30 | CT_ITS ---
WS: [id number] CT chest w con* [id number] HISTORY: Lung mass noted on CXR 10/10/24 TECHNIQUE: Axial imaging performed through the thorax. Coronal and sagittal reformats are submitted. All CT scans at [facility] use at least one of these dose optimization techniques: automated exposure control; mA and/or kV adjustment per patient size (includes targeted exams where dose is matched to clinical indication); or iterative reconstruction. CONTRAST: Omnipaque 350; 100 mL IV. DLP: 531.57 mGy.cm COMPARISON: 01/09/2024, 08/03/2023, chest radiograph 10/10/2024 Lungs and central airway: Mild pulmonary hyperexpansion. Biapical pleural thickening and scarring. There is several subcentimeter nodules at the LEFT apex which are stable since 08/03/2023. No new pulmonary mass, nodule or pneumonia. Benign granuloma LEFT lung base. Pleura: Normal. No pleural effusion. Heart and pericardium: Normal size heart with no pericardial effusion. Mediastinum and good: No mediastinum or hilar adenopathy. Vessels: Mild atherosclerosis aorta. No aneurysm of the aorta. Normal size pulmonary artery. LEFT subclavian Mediport. Chest wall and lower neck: LEFT subclavian Mediport Upper abdomen: No adrenal mass. Visualized liver is normal. There is a small hiatal hernia. Osseous structures: Patient has no osteoblastic metastatic bone disease from prostate cancer. Extensive osteoblastic metastatic disease throughout the spine, ribs and sternum. Chronic compression deformity T2 is stable. No obvious progression of metastatic disease. CT/CT chest w con* [id number] IMPRESSION: 1. No pulmonary mass or nodule. No pneumonia. 2. Area of increased density in the RIGHT lower lobe seen on the recent chest x-ray is probably related to treated osteoblastic bone metastasis involving one of the ribs. 3. Chronic emphysema. No interval change of either lung. 4. LEFT subclavian Mediport. 5. No mediastinal or hilar adenopathy.
[2025-01-21] MEDS: iohexol 350 mg/mL 500 mL Btl (per mL) IV (15:01)
[2025-02-03 10:19] LABS: Basophils % 0.1 %; Eosinophils % 0.1 %; Hematocrit 35.7 % (37-53); Mean Corpuscular HGB Conc 32.8 g/dL (30-55); Mean Corpuscular Hemoglobin 32.5 pg (27-33); Mean Corpuscular Volume 99.2 fl (82-101); Mean Platelet Volume 9.4 fL (7.4-10.4); Monocytes # 0.7 10^3/uL (0.2-0.9); Neutrophils # 12.29 10^3/uL (1.8-7.7); Neutrophils % 87.1 %; Nucleated Red Blood Cells % 0 %; Platelet Count 241 10^3/cmm (157-399); Red Cell Distribution Width 15.1 % (12.1-15.1)
[2025-02-03 10:48] LABS: Alanine Aminotransferase 17 U/L (0-41); Albumin Level 3.9 g/dL (3.5-5.2); Alkaline Phosphatase 57 U/L (40-130); Anion Gap 15.2 (5-19); Aspartate Amino Transferase 12 U/L (0-40); Blood Urea Nitrogen 14 mg/dL (8-23); Calcium 8.7 mg/dL (8.5-10.5); Carbon Dioxide 21 mmol/L (22-29); Chloride 106 mmol/L (98-107); Creatinine Clr Calc Pharmacy 107.7119; Globulin 2.7 g/dL (1.3-4.6); Glomerular Filtration Rate 133.6 mL/min (90-130); Glucose 125 mg/dL (65-115); Osmolality Calculated 288 mOsm/kg (285-295); Potassium 4.2 mmol/L (3.5-5.1); Sodium 138 mmol/L (136-145); Total Bilirubin 0.3 mg/dL (0.15-1.2); Total Protein 6.6 g/dL (6.6-8.7)
[2025-02-03] MEDS: sodium chloride 0.9% 250 ML 75 ML IV (11:00)
[2025-02-03] MEDS: denosumab 120 mg SDV SUBCUT (11:00)
[2025-02-03] MEDS: palonosetron 0.25 mg/5 mL SDV IVP (11:01)
[2025-02-03] MEDS: diphenhydrAMINE 50 mg/mL SDV 1mL 25 MG IVP (11:01)
[2025-02-03] MEDS: famotidine 20 mg/2 mL INJ IVP (11:05)
[2025-02-03] MEDS: dexamethasone 4 mg/mL INJ 5 mL 12 MG IVP (11:07)
[2025-02-03] MEDS: [UNRECOGNIZED DRUG - REMARK] 266.7 MG IV (11:57)
[2025-02-03 13:16] VITALS: BP 121/77; PULSE 77; RESP 16; TEMP 36.1; O2SAT 97
== END 2025-02-17 23:59 | disposition home or self-care (01) ==
PROVIDERS: PCP Registered Nurse; Visit Provider Internal Medicine Medical Oncology
DX: Z53.9 Procedure and treatment not carried out, unspecified reason (principal); Z51.11 Encounter for antineoplastic chemotherapy; C61 Malignant neoplasm of prostate; C79.51 Secondary malignant neoplasm of bone; D70.1 Agranulocytosis secondary to cancer chemotherapy; T45.1X5A Adverse effect of antineoplastic and immunosuppressive drugs, initial encounter; Z79.52 Long term (current) use of systemic steroids; Z95.828 Presence of other vascular implants and grafts; F17.210 Nicotine dependence, cigarettes, uncomplicated; Z79.899 Other long term (current) drug therapy; G89.3 Neoplasm related pain (acute) (chronic)
CPT/HCPCS: 71260; 80053; 84153; 85025; 96372; 96375; 96413; 96523; 99214; J0897; J1100; J1200; J2469; J3490; J7050; J9171

== ENCOUNTER 2025-03-17 09:00 | Oncology outpatient (recurring) (ONCR) | payer MEDICARE, SELFPAY ==
[2025-02-24 10:03] LABS: Basophils % 0.2 %; Hematocrit 34.6 % (37-53); Lymphocytes # 1.3 10^3/uL (0.8-4.8); Lymphocytes % 9.3 %; Mean Corpuscular HGB Conc 32.9 g/dL (30-55); Mean Corpuscular Hemoglobin 32.5 pg (27-33); Mean Corpuscular Volume 98.6 fl (82-101); Mean Platelet Volume 9.9 fL (7.4-10.4); Monocytes # 0.7 10^3/uL (0.2-0.9); Monocytes % 5.1 %; Neutrophils # 11.36 10^3/uL (1.8-7.7); Neutrophils % 84.2 %; Nucleated Red Blood Cells % 0 %; Platelet Count 205 10^3/cmm (157-399); Red Blood Count 3.51 10^6/uL (3.85-5.65); Red Cell Distribution Width 15.3 % (12.1-15.1)
[2025-02-24 10:27] LABS: Alanine Aminotransferase 21 U/L (0-41); Albumin Level 3.9 g/dL (3.5-5.2); Alkaline Phosphatase 55 U/L (40-130); Anion Gap 14.4 (5-19); Aspartate Amino Transferase 15 U/L (0-40); Blood Urea Nitrogen 12 mg/dL (8-23); Calcium 8.6 mg/dL (8.5-10.5); Carbon Dioxide 22 mmol/L (22-29); Chloride 105 mmol/L (98-107); Creatinine Clr Calc Pharmacy 108.8302; Globulin 2.6 g/dL (1.3-4.6); Glomerular Filtration Rate 133.6 mL/min (90-130); Glucose 124 mg/dL (65-115); Osmolality Calculated 285 mOsm/kg (285-295); Potassium 4.4 mmol/L (3.5-5.1); Sodium 137 mmol/L (136-145); Total Bilirubin 0.2 mg/dL (0.15-1.2); Total Protein 6.5 g/dL (6.6-8.7)
[2025-02-24 10:32] LABS: Testosterone Total < 2.5 ng/dL (193-740)
[2025-02-24] MEDS: sodium chloride 0.9% 250 ML 75 ML IV (11:11)
[2025-02-24] MEDS: diphenhydrAMINE 50 mg/mL SDV 1mL 25 MG IVP (11:11)
[2025-02-24] MEDS: palonosetron 0.25 mg/5 mL SDV IVP (11:11)
[2025-02-24] MEDS: famotidine 20 mg/2 mL INJ IVP (11:14)
[2025-02-24] MEDS: leuprolide 22.5 mg Kit IM (11:17)
[2025-02-24] MEDS: dexamethasone 4 mg/mL INJ 5 mL 12 MG IVP (11:17)
[2025-02-24] MEDS: [UNRECOGNIZED DRUG - REMARK] 266.7 MG IV (12:00)
[2025-02-24 13:10] VITALS: BP 148/81; PULSE 70; RESP 18; TEMP 36.5; O2SAT 99
[2025-03-17 09:20] LABS: Basophils % 0.2 %; Lymphocytes # 1.1 10^3/uL (0.8-4.8); Lymphocytes % 9.9 %; Mean Corpuscular HGB Conc 32.5 g/dL (30-55); Mean Corpuscular Hemoglobin 31.7 pg (27-33); Mean Corpuscular Volume 97.6 fl (82-101); Mean Platelet Volume 9.8 fL (7.4-10.4); Monocytes # 0.4 10^3/uL (0.2-0.9); Monocytes % 3.9 %; Neutrophils # 9.05 10^3/uL (1.8-7.7); Neutrophils % 85.1 %; Nucleated Red Blood Cells % 0 %; Platelet Count 218 10^3/cmm (157-399); Red Blood Count 3.69 10^6/uL (3.85-5.65); Red Cell Distribution Width 15.4 % (12.1-15.1); White Blood Count 10.63 10^3/uL (3.29-11.43)
[2025-03-17 09:50] LABS: Alanine Aminotransferase 22 U/L (0-41); Albumin Level 3.9 g/dL (3.5-5.2); Alkaline Phosphatase 60 U/L (40-130); Aspartate Amino Transferase 18 U/L (0-40); Blood Urea Nitrogen 11 mg/dL (8-23); Calcium 8.7 mg/dL (8.5-10.5); Carbon Dioxide 23 mmol/L (22-29); Chloride 104 mmol/L (98-107); Creatinine Clr Calc Pharmacy 109.5012; Globulin 2.7 g/dL (1.3-4.6); Glomerular Filtration Rate 133.6 mL/min (90-130); Glucose 128 mg/dL (65-115); Osmolality Calculated 287 mOsm/kg (285-295); Sodium 138 mmol/L (136-145); Testosterone Total < 2.5 ng/dL (193-740); Total Bilirubin 0.4 mg/dL (0.15-1.2); Total Protein 6.6 g/dL (6.6-8.7)
[2025-03-17] MEDS: dexamethasone 4 mg/mL INJ 5 mL 12 MG IVP (11:15)
[2025-03-17] MEDS: famotidine 20 mg/2 mL INJ IVP (11:16)
[2025-03-17] MEDS: palonosetron 0.25 mg/5 mL SDV IVP (11:16)
[2025-03-17] MEDS: diphenhydrAMINE 50 mg/mL SDV 1mL 25 MG IVP (11:16)
[2025-03-17] MEDS: [UNRECOGNIZED DRUG - REMARK] 266.7 MG IV (11:36)
[2025-03-17 12:42] VITALS: BP 138/75; PULSE 66; TEMP 36.4; O2SAT 93
[2025-03-17] MEDS: denosumab 120 mg SDV SUBCUT (12:49)
== END 2025-03-19 23:59 | disposition home or self-care (01) ==
PROVIDERS: PCP Registered Nurse; Visit Provider Internal Medicine Medical Oncology
DX: Z53.9 Procedure and treatment not carried out, unspecified reason; Z51.11 Encounter for antineoplastic chemotherapy; C61 Malignant neoplasm of prostate; C79.51 Secondary malignant neoplasm of bone; Z79.52 Long term (current) use of systemic steroids; D70.1 Agranulocytosis secondary to cancer chemotherapy; T45.1X5A Adverse effect of antineoplastic and immunosuppressive drugs, initial encounter; F17.210 Nicotine dependence, cigarettes, uncomplicated; G89.3 Neoplasm related pain (acute) (chronic); R03.0 Elevated blood-pressure reading, without diagnosis of hypertension; Z79.899 Other long term (current) drug therapy
CPT/HCPCS: 80053; 84153; 84403; 85025; 96372; 96375; 96402; 96413; 99214; J0897; J1100; J1200; J2469; J3490; J7050; J9171; J9217

== ENCOUNTER 2025-04-07 10:00 | Oncology outpatient (recurring) (ONCR) | payer MEDICARE, SELFPAY ==
[2025-03-24 12:17] LABS: Basophils % 1.3 %; Hematocrit 34.5 % (37-53); Lymphocytes # 1.1 10^3/uL (0.8-4.8); Lymphocytes % 37.9 %; Mean Corpuscular HGB Conc 33.6 g/dL (30-55); Mean Corpuscular Hemoglobin 32.8 pg (27-33); Mean Corpuscular Volume 97.5 fl (82-101); Mean Platelet Volume 10.4 fL (7.4-10.4); Monocytes # 0.1 10^3/uL (0.2-0.9); Monocytes % 4.7 %; Neutrophils # 1.62 10^3/uL (1.8-7.7); Neutrophils % 54.4 %; Nucleated Red Blood Cells % 0 %; Platelet Count 178 10^3/cmm (157-399); Red Blood Count 3.54 10^6/uL (3.85-5.65); Red Cell Distribution Width 14.9 % (12.1-15.1); White Blood Count 2.98 10^3/uL (3.29-11.43)
[2025-03-24 12:26] LABS: Alanine Aminotransferase 30 U/L (0-41); Albumin Level 3.8 g/dL (3.5-5.2); Alkaline Phosphatase 58 U/L (40-130); Anion Gap 15.9 (5-19); Aspartate Amino Transferase 16 U/L (0-40); Blood Urea Nitrogen 10 mg/dL (8-23); Calcium 8.6 mg/dL (8.5-10.5); Carbon Dioxide 22 mmol/L (22-29); Chloride 101 mmol/L (98-107); Globulin 2.4 g/dL (1.3-4.6); Glomerular Filtration Rate 133.6 mL/min (90-130); Glucose 98 mg/dL (65-115); Osmolality Calculated 279 mOsm/kg (285-295); Potassium 3.9 mmol/L (3.5-5.1); Sodium 135 mmol/L (136-145); Total Bilirubin 0.3 mg/dL (0.15-1.2); Total Protein 6.2 g/dL (6.6-8.7)
[2025-04-07 12:04] LABS: Basophils % 0.1 %; Eosinophils % 0.1 %; Hematocrit 36.2 % (37-53); Lymphocytes % 7.6 %; Mean Corpuscular HGB Conc 32.9 g/dL (30-55); Mean Corpuscular Hemoglobin 31.5 pg (27-33); Mean Corpuscular Volume 95.8 fl (82-101); Mean Platelet Volume 9.6 fL (7.4-10.4); Monocytes # 0.6 10^3/uL (0.2-0.9); Monocytes % 4.2 %; Neutrophils # 11.78 10^3/uL (1.8-7.7); Neutrophils % 87.3 %; Nucleated Red Blood Cells % 0 %; Platelet Count 229 10^3/cmm (157-399); Red Blood Count 3.78 10^6/uL (3.85-5.65); Red Cell Distribution Width 15.8 % (12.1-15.1); White Blood Count 13.48 10^3/uL (3.29-11.43)
[2025-04-07 12:31] LABS: Alanine Aminotransferase 24 U/L (0-41); Albumin Level 3.7 g/dL (3.5-5.2); Alkaline Phosphatase 72 U/L (40-130); Aspartate Amino Transferase 16 U/L (0-40); Blood Urea Nitrogen 12 mg/dL (8-23); Calcium 8.8 mg/dL (8.5-10.5); Carbon Dioxide 23 mmol/L (22-29); Chloride 106 mmol/L (98-107); Creatinine Clr Calc Pharmacy 108.6068; Globulin 2.9 g/dL (1.3-4.6); Glomerular Filtration Rate 133.6 mL/min (90-130); Glucose 130 mg/dL (65-115); Osmolality Calculated 292 mOsm/kg (285-295); Sodium 140 mmol/L (136-145); Total Bilirubin 0.3 mg/dL (0.15-1.2); Total Protein 6.6 g/dL (6.6-8.7)
[2025-04-07] MEDS: sodium chloride 0.9% 250 ML 75 ML IV (13:08)
[2025-04-07] MEDS: dexamethasone 4 mg/mL INJ 5 mL 12 MG IVP (13:09)
[2025-04-07] MEDS: palonosetron 0.25 mg/5 mL SDV IVP (13:09)
[2025-04-07] MEDS: famotidine 20 mg/2 mL INJ IVP (13:10)
[2025-04-07] MEDS: diphenhydrAMINE 50 mg/mL SDV 1mL 25 MG IVP (13:10)
[2025-04-07] MEDS: [UNRECOGNIZED DRUG - REMARK] 267 MG IV (14:03)
[2025-04-07 15:12] VITALS: BP 151/87; PULSE 72; RESP 17; TEMP 36.4; O2SAT 95
== END 2025-04-19 23:59 | disposition home or self-care (01) ==
PROVIDERS: Nurse Practitioner Family; PCP Registered Nurse; Visit Provider Internal Medicine Medical Oncology
DX: Z53.9 Procedure and treatment not carried out, unspecified reason (principal); Z51.11 Encounter for antineoplastic chemotherapy; C61 Malignant neoplasm of prostate; C79.51 Secondary malignant neoplasm of bone; R03.0 Elevated blood-pressure reading, without diagnosis of hypertension; Z95.828 Presence of other vascular implants and grafts; F17.210 Nicotine dependence, cigarettes, uncomplicated; G89.3 Neoplasm related pain (acute) (chronic); D70.1 Agranulocytosis secondary to cancer chemotherapy; T45.1X5A Adverse effect of antineoplastic and immunosuppressive drugs, initial encounter; Z79.818 Long term (current) use of other agents affecting estrogen receptors and estrogen levels; Z79.899 Other long term (current) drug therapy
CPT/HCPCS: 36591; 80053; 84153; 85025; 96374; 96375; 96413; 99214; J1100; J1200; J2469; J3490; J7050; J9171

== ENCOUNTER 2025-05-19 10:30 | Oncology outpatient (recurring) (ONCR) | payer MEDICARE, SELFPAY ==
[2025-04-28 11:21] LABS: Basophils % 0.3 %; Hematocrit 35.5 % (37-53); Lymphocytes # 1.3 10^3/uL (0.8-4.8); Lymphocytes % 11.1 %; Mean Corpuscular Hemoglobin 31.6 pg (27-33); Mean Corpuscular Volume 95.9 fl (82-101); Mean Platelet Volume 9.7 fL (7.4-10.4); Monocytes # 0.7 10^3/uL (0.2-0.9); Monocytes % 6.2 %; Neutrophils # 9.38 10^3/uL (1.8-7.7); Neutrophils % 81.6 %; Nucleated Red Blood Cells % 0 %; Platelet Count 200 10^3/cmm (157-399); Red Cell Distribution Width 16.9 % (12.1-15.1); White Blood Count 11.49 10^3/uL (3.29-11.43)
[2025-04-28 11:50] LABS: Alanine Aminotransferase 21 U/L (0-41); Albumin Level 3.8 g/dL (3.5-5.2); Alkaline Phosphatase 58 U/L (40-130); Anion Gap 14.7 (5-19); Aspartate Amino Transferase 14 U/L (0-40); Blood Urea Nitrogen 11 mg/dL (8-23); Calcium 8.8 mg/dL (8.5-10.5); Carbon Dioxide 23 mmol/L (22-29); Chloride 103 mmol/L (98-107); Globulin 2.4 g/dL (1.3-4.6); Glomerular Filtration Rate 111.8 mL/min (90-130); Glucose 151 mg/dL (65-115); Osmolality Calculated 286 mOsm/kg (285-295); Potassium 3.7 mmol/L (3.5-5.1); Sodium 137 mmol/L (136-145); Testosterone Total < 2.5 ng/dL (193-740); Total Bilirubin 0.4 mg/dL (0.15-1.2); Total Protein 6.2 g/dL (6.6-8.7)
[2025-04-28] MEDS: denosumab 120 mg SDV SUBCUT (13:46)
[2025-04-28] MEDS: famotidine 20 mg/2 mL INJ IVP (14:13)
[2025-04-28] MEDS: dexamethasone 4 mg/mL INJ 5 mL 12 MG IVP (14:13)
[2025-04-28] MEDS: palonosetron 0.25 mg/5 mL SDV IVP (14:13)
[2025-04-28] MEDS: diphenhydrAMINE 50 mg/mL SDV 1mL 25 MG IVP (14:14)
[2025-04-28] MEDS: [UNRECOGNIZED DRUG - REMARK] 267 MG IV (14:35)
[2025-04-28 15:49] VITALS: BP 138/74; PULSE 68; RESP 18; TEMP 36.5; O2SAT 96
[2025-05-19 10:23] LABS: Basophils % 0.5 %; Hematocrit 35.4 % (37-53); Lymphocytes # 1.3 10^3/uL (0.8-4.8); Lymphocytes % 16.2 %; Mean Corpuscular HGB Conc 33.3 g/dL (30-55); Mean Corpuscular Hemoglobin 32.3 pg (27-33); Mean Platelet Volume 9.5 fL (7.4-10.4); Monocytes # 0.7 10^3/uL (0.2-0.9); Neutrophils # 6.09 10^3/uL (1.8-7.7); Neutrophils % 73.7 %; Nucleated Red Blood Cells % 0 %; Platelet Count 210 10^3/cmm (157-399); Red Blood Count 3.65 10^6/uL (3.85-5.65); Red Cell Distribution Width 16.9 % (12.1-15.1); White Blood Count 8.26 10^3/uL (3.29-11.43)
[2025-05-19 10:53] LABS: Alanine Aminotransferase 26 U/L (0-41); Albumin Level 3.5 g/dL (3.5-5.2); Alkaline Phosphatase 66 U/L (40-130); Anion Gap 12.8 (5-19); Aspartate Amino Transferase 20 U/L (0-40); Blood Urea Nitrogen 8 mg/dL (8-23); Calcium 8.9 mg/dL (8.5-10.5); Carbon Dioxide 24 mmol/L (22-29); Chloride 106 mmol/L (98-107); Creatinine Clr Calc Pharmacy 108.1591; Globulin 2.7 g/dL (1.3-4.6); Glomerular Filtration Rate 133.6 mL/min (90-130); Glucose 107 mg/dL (65-115); Osmolality Calculated 287 mOsm/kg (285-295); Potassium 3.8 mmol/L (3.5-5.1); Sodium 139 mmol/L (136-145); Total Bilirubin 0.3 mg/dL (0.15-1.2); Total Protein 6.2 g/dL (6.6-8.7)
[2025-05-19 10:55] LABS: Testosterone Total < 2.5 ng/dL (193-740)
[2025-05-19] MEDS: sodium chloride 0.9% 250 ML 75 ML IV (12:20)
[2025-05-19] MEDS: diphenhydrAMINE 50 mg/mL SDV 1mL 25 MG IVP (12:25)
[2025-05-19] MEDS: famotidine 20 mg/2 mL INJ IVP (12:27)
[2025-05-19] MEDS: palonosetron 0.25 mg/5 mL SDV IVP (12:33)
[2025-05-19] MEDS: dexamethasone 4 mg/mL INJ 5 mL 12 MG IVP (12:33)
[2025-05-19] MEDS: leuprolide 22.5 mg Kit IM (12:41)
[2025-05-19] MEDS: [UNRECOGNIZED DRUG - REMARK] 266.9 MG IV (13:09)
[2025-05-19 14:27] VITALS: BP 130/75; PULSE 72; TEMP 36.3; O2SAT 99
== END 2025-05-19 23:59 | disposition home or self-care (01) ==
PROVIDERS: Nurse Practitioner Family; PCP Registered Nurse; Visit Provider Internal Medicine Medical Oncology
DX: Z53.9 Procedure and treatment not carried out, unspecified reason; Z51.11 Encounter for antineoplastic chemotherapy; C61 Malignant neoplasm of prostate; C79.51 Secondary malignant neoplasm of bone; F17.210 Nicotine dependence, cigarettes, uncomplicated; G89.3 Neoplasm related pain (acute) (chronic); Z79.52 Long term (current) use of systemic steroids; Z79.818 Long term (current) use of other agents affecting estrogen receptors and estrogen levels; Z95.828 Presence of other vascular implants and grafts
CPT/HCPCS: 80053; 84153; 84403; 85025; 96372; 96375; 96402; 96413; 99214; J0897; J1100; J1200; J2469; J3490; J7050; J9171; J9217

== ENCOUNTER 2025-06-09 09:46 | Oncology outpatient (recurring) (ONCR) | payer MEDICARE, SELFPAY ==
[2025-06-09 10:18] LABS: Hematocrit 34.3 % (37-53); Hemoglobin 11.30 g/dL (11.27-16.99); Mean Corpuscular HGB Conc 32.9 g/dL (30-55); Mean Corpuscular Hemoglobin 32.0 pg (27-33); Mean Corpuscular Volume 97.2 fl (82-101); Nucleated Red Blood Cells % 0 %; Platelet Count 193 10^3/cmm (157-399); Red Blood Count 3.53 10^6/uL (3.85-5.65); White Blood Count 8.48 10^3/uL (3.29-11.43)
[2025-06-09 10:52] LABS: Alanine Aminotransferase 19 U/L (0-41); Albumin Level 3.5 g/dL (3.5-5.2); Alkaline Phosphatase 51 U/L (40-130); Anion Gap 16.4 (5-19); Aspartate Amino Transferase 15 U/L (0-40); Blood Urea Nitrogen 12 mg/dL (8-23); Calcium 8.9 mg/dL (8.5-10.5); Carbon Dioxide 22 mmol/L (22-29); Chloride 104 mmol/L (98-107); Creatinine Clr Calc Pharmacy 108.8302; Globulin 2.5 g/dL (1.3-4.6); Glucose 111 mg/dL (65-115); Osmolality Calculated 286 mOsm/kg (285-295); Potassium 4.4 mmol/L (3.5-5.1); Prostate Specific Antigen 7.690 ng/mL (0-4); Sodium 138 mmol/L (136-145); Total Protein 6.0 g/dL (6.6-8.7)
[2025-06-09] MEDS: diphenhydrAMINE 50 mg/mL SDV 1mL 25 MG IVP (11:48)
[2025-06-09] MEDS: dexamethasone 4 mg/mL INJ 5 mL 12 MG IVP (11:54)
[2025-06-09] MEDS: [UNRECOGNIZED DRUG - REMARK] 267 MG IV (12:38)
[2025-06-09] MEDS: denosumab 120 mg SDV SUBCUT (13:44)
== END 2025-06-19 23:59 | disposition home or self-care (01) ==
PROVIDERS: PCP Registered Nurse; Visit Provider Internal Medicine Medical Oncology
DX: Z51.11 Encounter for antineoplastic chemotherapy (principal); C61 Malignant neoplasm of prostate; C79.51 Secondary malignant neoplasm of bone; R03.0 Elevated blood-pressure reading, without diagnosis of hypertension; D70.1 Agranulocytosis secondary to cancer chemotherapy; T45.1X5A Adverse effect of antineoplastic and immunosuppressive drugs, initial encounter; F17.210 Nicotine dependence, cigarettes, uncomplicated; G89.3 Neoplasm related pain (acute) (chronic); Z79.52 Long term (current) use of systemic steroids; Z95.828 Presence of other vascular implants and grafts; Z79.899 Other long term (current) drug therapy
CPT/HCPCS: 80053; 84153; 84403; 85025; 96375; 96377; 96413; 99214; J0897; J1100; J1200; J2469; J3490; J7050; J9171

== ENCOUNTER 2025-06-30 07:28 | Oncology outpatient (recurring) (ONCR) | payer MEDICARE, SELFPAY ==
[2025-06-30 07:48] LABS: Hematocrit 35.0 % (37-53); Hemoglobin 11.50 g/dL (11.27-16.99); Mean Corpuscular HGB Conc 32.9 g/dL (30-55); Mean Corpuscular Hemoglobin 31.4 pg (27-33); Mean Corpuscular Volume 95.6 fl (82-101); Nucleated Red Blood Cells % 0 %; Platelet Count 212 10^3/cmm (157-399); Red Blood Count 3.66 10^6/uL (3.85-5.65); White Blood Count 12.62 10^3/uL (3.29-11.43)
[2025-06-30 08:13] LABS: Alanine Aminotransferase 19 U/L (0-41); Albumin Level 3.8 g/dL (3.5-5.2); Alkaline Phosphatase 62 U/L (40-130); Anion Gap 15.3 (5-19); Aspartate Amino Transferase 13 U/L (0-40); Blood Urea Nitrogen 16 mg/dL (8-23); Calcium 8.8 mg/dL (8.5-10.5); Carbon Dioxide 21 mmol/L (22-29); Chloride 105 mmol/L (98-107); Creatinine Clr Calc Pharmacy 107.9358; Globulin 2.5 g/dL (1.3-4.6); Glucose 158 mg/dL (65-115); Osmolality Calculated 288 mOsm/kg (285-295); Potassium 4.3 mmol/L (3.5-5.1); Prostate Specific Antigen 7.520 ng/mL (0-4); Sodium 137 mmol/L (136-145); Total Protein 6.3 g/dL (6.6-8.7)
[2025-06-30] MEDS: diphenhydrAMINE 50 mg/mL SDV 1mL 25 MG IVP (08:51)
[2025-06-30] MEDS: dexamethasone 4 mg/mL INJ 5 mL 12 MG IVP (08:53)
[2025-06-30] MEDS: [UNRECOGNIZED DRUG - REMARK] 266.8 MG IV (09:17)
[2025-06-30 10:31] VITALS: BP 148/84; PULSE 54; TEMP 36.2
== END 2025-07-20 23:59 | disposition home or self-care (01) ==
PROVIDERS: Nurse Practitioner Family; PCP Registered Nurse; Visit Provider Internal Medicine Medical Oncology
DX: Z51.11 Encounter for antineoplastic chemotherapy (principal); C61 Malignant neoplasm of prostate; C79.51 Secondary malignant neoplasm of bone; R03.0 Elevated blood-pressure reading, without diagnosis of hypertension; F17.210 Nicotine dependence, cigarettes, uncomplicated; G89.3 Neoplasm related pain (acute) (chronic); D70.1 Agranulocytosis secondary to cancer chemotherapy; T45.1X5A Adverse effect of antineoplastic and immunosuppressive drugs, initial encounter; Z79.52 Long term (current) use of systemic steroids; Z95.828 Presence of other vascular implants and grafts; Z79.899 Other long term (current) drug therapy; Z71.6 Tobacco abuse counseling
CPT/HCPCS: 80053; 84153; 85025; 96375; 96413; 99214; J1100; J1200; J2469; J3490; J7050; J9171

== ENCOUNTER 2025-08-11 07:55 | Oncology outpatient (recurring) (ONCR) | payer MEDICARE, SELFPAY ==
[2025-07-22 07:49] LABS: Hematocrit 35.4 % (37-53); Hemoglobin 11.60 g/dL (11.27-16.99); Mean Corpuscular HGB Conc 32.8 g/dL (30-55); Mean Corpuscular Hemoglobin 31.4 pg (27-33); Mean Corpuscular Volume 95.7 fl (82-101); Nucleated Red Blood Cells % 0 %; Platelet Count 197 10^3/cmm (157-399); Red Blood Count 3.70 10^6/uL (3.85-5.65); White Blood Count 8.69 10^3/uL (3.29-11.43)
[2025-07-22 08:16] LABS: Alanine Aminotransferase 22 U/L (0-41); Albumin Level 3.5 g/dL (3.5-5.2); Alkaline Phosphatase 54 U/L (40-130); Anion Gap 14.9 (5-19); Aspartate Amino Transferase 17 U/L (0-40); Blood Urea Nitrogen 12 mg/dL (8-23); Calcium 8.6 mg/dL (8.5-10.5); Carbon Dioxide 23 mmol/L (22-29); Chloride 106 mmol/L (98-107); Creatinine Clr Calc Pharmacy 108.6763; Globulin 2.4 g/dL (1.3-4.6); Glucose 101 mg/dL (65-115); Osmolality Calculated 290 mOsm/kg (285-295); Potassium 3.9 mmol/L (3.5-5.1); Prostate Specific Antigen 8.630 ng/mL (0-4); Sodium 140 mmol/L (136-145); Total Protein 5.9 g/dL (6.6-8.7)
[2025-07-22] MEDS: diphenhydrAMINE 50 mg/mL SDV 1mL 25 MG IVP (09:33)
[2025-07-22] MEDS: dexamethasone 4 mg/mL INJ 5 mL 20 MG IVP (09:38)
[2025-07-22] MEDS: denosumab 120 mg SDV SUBCUT (09:45)
[2025-07-22] MEDS: [UNRECOGNIZED DRUG - REMARK] 267 MG IV (10:08)
[2025-07-22 11:26] VITALS: BP 160/90; PULSE 67; TEMP 36.2; O2SAT 95
[2025-08-11 08:45] LABS: Hematocrit 35.5 % (37-53); Hemoglobin 11.50 g/dL (11.27-16.99); Mean Corpuscular HGB Conc 32.4 g/dL (30-55); Mean Corpuscular Hemoglobin 30.8 pg (27-33); Mean Corpuscular Volume 95.2 fl (82-101); Nucleated Red Blood Cells % 0 %; Platelet Count 224 10^3/cmm (157-399); Red Blood Count 3.73 10^6/uL (3.85-5.65); White Blood Count 12.67 10^3/uL (3.29-11.43)
[2025-08-11 09:12] LABS: Alanine Aminotransferase 19 U/L (0-41); Albumin Level 3.7 g/dL (3.5-5.2); Alkaline Phosphatase 54 U/L (40-130); Anion Gap 17.3 (5-19); Aspartate Amino Transferase 15 U/L (0-40); Blood Urea Nitrogen 12 mg/dL (8-23); Calcium 8.7 mg/dL (8.5-10.5); Carbon Dioxide 22 mmol/L (22-29); Chloride 105 mmol/L (98-107); Creatinine Clr Calc Pharmacy 108.3830; Globulin 2.5 g/dL (1.3-4.6); Glucose 153 mg/dL (65-115); Osmolality Calculated 293 mOsm/kg (285-295); Potassium 4.3 mmol/L (3.5-5.1); Prostate Specific Antigen 8.730 ng/mL (0-4); Sodium 140 mmol/L (136-145); Total Protein 6.2 g/dL (6.6-8.7)
[2025-08-11] MEDS: dexamethasone 4 mg/mL INJ 5 mL 12 MG IVP (09:52)
[2025-08-11] MEDS: diphenhydrAMINE 50 mg/mL SDV 1mL 25 MG IVP (09:53)
[2025-08-11] MEDS: [UNRECOGNIZED DRUG - REMARK] 266.9 MG IV (10:33)
[2025-08-11] MEDS: leuprolide 22.5 mg Kit IM (11:43)
[2025-08-11 11:52] VITALS: BP 147/79; PULSE 86; RESP 17; TEMP 36.6; O2SAT 96
== END 2025-08-11 23:59 | disposition home or self-care (01) ==
PROVIDERS: Nurse Practitioner; PCP Registered Nurse; Visit Provider Internal Medicine Medical Oncology
DX: Z51.11 Encounter for antineoplastic chemotherapy (principal); C61 Malignant neoplasm of prostate; C79.51 Secondary malignant neoplasm of bone; F17.210 Nicotine dependence, cigarettes, uncomplicated; D70.1 Agranulocytosis secondary to cancer chemotherapy; T45.1X5A Adverse effect of antineoplastic and immunosuppressive drugs, initial encounter; R03.0 Elevated blood-pressure reading, without diagnosis of hypertension; G89.3 Neoplasm related pain (acute) (chronic); Z79.818 Long term (current) use of other agents affecting estrogen receptors and estrogen levels; Z79.52 Long term (current) use of systemic steroids; Z79.899 Other long term (current) drug therapy; Z95.828 Presence of other vascular implants and grafts
CPT/HCPCS: 80053; 84153; 84403; 85025; 96372; 96375; 96413; 99214; J0897; J1100; J1200; J2469; J3490; J7050; J9171; J9217

== ENCOUNTER 2025-09-02 08:30 | Oncology outpatient (recurring) (ONCR) | payer MEDICARE, SELFPAY ==
[2025-09-01 07:54] LABS: Hematocrit 34.0 % (37-53); Hemoglobin 11.30 g/dL (11.27-16.99); Mean Corpuscular HGB Conc 33.2 g/dL (30-55); Mean Corpuscular Hemoglobin 32.1 pg (27-33); Mean Corpuscular Volume 96.6 fl (82-101); Nucleated Red Blood Cells % 0 %; Platelet Count 191 10^3/cmm (157-399); Red Blood Count 3.52 10^6/uL (3.85-5.65); White Blood Count 10.64 10^3/uL (3.29-11.43)
[2025-09-01 08:24] LABS: Alanine Aminotransferase 16 U/L (0-41); Albumin Level 3.7 g/dL (3.5-5.2); Alkaline Phosphatase 53 U/L (40-130); Anion Gap 17.2 (5-19); Aspartate Amino Transferase 15 U/L (0-40); Blood Urea Nitrogen 12 mg/dL (8-23); Calcium 8.4 mg/dL (8.5-10.5); Carbon Dioxide 20 mmol/L (22-29); Chloride 108 mmol/L (98-107); Creatinine Clr Calc Pharmacy 107.8073; Globulin 2.6 g/dL (1.3-4.6); Glucose 116 mg/dL (65-115); Osmolality Calculated 293 mOsm/kg (285-295); Potassium 4.2 mmol/L (3.5-5.1); Prostate Specific Antigen 8.440 ng/mL (0-4); Sodium 141 mmol/L (136-145); Total Protein 6.3 g/dL (6.6-8.7)
[2025-09-01] MEDS: dexamethasone 4 mg/mL INJ 5 mL 12 MG IVP (09:39)
[2025-09-01] MEDS: diphenhydrAMINE 50 mg/mL SDV 1mL 25 MG IVP (09:42)
[2025-09-01] MEDS: [UNRECOGNIZED DRUG - REMARK] 267 MG IV (10:18)
[2025-09-01 11:30] VITALS: BP 142/84; PULSE 80; TEMP 36.3; O2SAT 95
[2025-09-02] MEDS: denosumab 120 mg SDV (Infusion Clinic Only) SUBCUT (08:25)
== END 2025-09-19 23:59 | disposition home or self-care (01) ==
PROVIDERS: PCP Registered Nurse; Visit Provider Internal Medicine Medical Oncology
DX: Z53.9 Procedure and treatment not carried out, unspecified reason; C61 Malignant neoplasm of prostate; C79.51 Secondary malignant neoplasm of bone; Z79.899 Other long term (current) drug therapy
CPT/HCPCS: 80053; 84153; 84403; 85025; 96372; 96375; 96413; 99214; J0897; J1100; J1200; J2469; J3490; J7050; J9171

== ENCOUNTER 2025-10-15 08:30 | Oncology outpatient (recurring) (ONCR) | payer MEDICARE, SELFPAY ==
[2025-09-23 08:13] LABS: Hematocrit 33.5 % (37-53); Hemoglobin 11.00 g/dL (11.27-16.99); Mean Corpuscular HGB Conc 32.8 g/dL (30-55); Mean Corpuscular Hemoglobin 31.2 pg (27-33); Mean Corpuscular Volume 94.9 fl (82-101); Nucleated Red Blood Cells % 0 %; Platelet Count 218 10^3/cmm (157-399); Red Blood Count 3.53 10^6/uL (3.85-5.65); White Blood Count 11.50 10^3/uL (3.29-11.43)
[2025-09-23 08:46] LABS: Alanine Aminotransferase 20 U/L (0-41); Albumin Level 3.8 g/dL (3.5-5.2); Alkaline Phosphatase 52 U/L (40-130); Anion Gap 16.3 (5-19); Aspartate Amino Transferase 16 U/L (0-40); Blood Urea Nitrogen 11 mg/dL (8-23); Calcium 8.6 mg/dL (8.5-10.5); Carbon Dioxide 22 mmol/L (22-29); Chloride 105 mmol/L (98-107); Globulin 2.8 g/dL (1.3-4.6); Glucose 105 mg/dL (65-115); Osmolality Calculated 288 mOsm/kg (285-295); Potassium 4.3 mmol/L (3.5-5.1); Prostate Specific Antigen 7.950 ng/mL (0-4); Sodium 139 mmol/L (136-145); Total Protein 6.6 g/dL (6.6-8.7)
[2025-09-23] MEDS: diphenhydrAMINE 50 mg/mL SDV 1mL 25 MG IVP (10:13)
[2025-09-23] MEDS: dexamethasone 4 mg/mL INJ 5 mL 12 MG IVP (10:14)
[2025-09-23 11:49] VITALS: BP 149/87; PULSE 76; RESP 17; TEMP 36.7; O2SAT 93
[2025-10-14 09:12] LABS: Hematocrit 34.3 % (37-53); Hemoglobin 11.20 g/dL (11.27-16.99); Mean Corpuscular HGB Conc 32.7 g/dL (30-55); Mean Corpuscular Hemoglobin 31.2 pg (27-33); Mean Corpuscular Volume 95.5 fl (82-101); Nucleated Red Blood Cells % 0 %; Platelet Count 230 10^3/cmm (157-399); Red Blood Count 3.59 10^6/uL (3.85-5.65); White Blood Count 12.64 10^3/uL (3.29-11.43)
[2025-10-14 09:43] LABS: Alanine Aminotransferase 20 U/L (0-41); Albumin Level 3.7 g/dL (3.5-5.2); Alkaline Phosphatase 48 U/L (40-130); Anion Gap 17.0 (5-19); Aspartate Amino Transferase 14 U/L (0-40); Blood Urea Nitrogen 12 mg/dL (8-23); Calcium 8.5 mg/dL (8.5-10.5); Carbon Dioxide 22 mmol/L (22-29); Chloride 105 mmol/L (98-107); Globulin 2.6 g/dL (1.3-4.6); Glucose 110 mg/dL (65-115); Osmolality Calculated 290 mOsm/kg (285-295); Potassium 4.0 mmol/L (3.5-5.1); Prostate Specific Antigen 8.940 ng/mL (0-4); Sodium 140 mmol/L (136-145); Total Protein 6.3 g/dL (6.6-8.7)
[2025-10-14 11:19] VITALS: BP 133/76; PULSE 70; RESP 17; TEMP 37.1; O2SAT 98
[2025-10-14] MEDS: fluconazole premix 200 MG/100 ML PREMIX IV (12:37)
[2025-10-14 13:44] VITALS: BP 133/69; PULSE 69; RESP 18; O2SAT 99
--- NOTE | 2025-10-15 08:30 | USCV_ITS ---
Abdon Yao Age: 70 Gender: M : 1955 Exam Date: 10/15/2025 07:01 Ordering Phys: Leta oDwns APRN Technologist: Exam Location: [facility] [place] Indication: high risk meds BP: 130 / 75 HR: 81 Rhythm: Sinus Technical Quality: Adequate MEASUREMENTS (Male / Female) Normal Values 2D ECHO LVOT Diameter 2.0 cm LV Ejection Fraction MOD 4C 64.6 % LV Ejection Fraction MOD 2C 63.5 % LV Ejection Fraction 2C AL 65.4 % LA Diameter 4.0 cm RA Systolic Volume 4C AL 42.7 ml RA Systolic Volume 4C MOD 40.9 ml Aorta at Sinotubular Diameter 3.2 cm IVC Diameter 1.8 cm M-MODE LA Ao Ratio MM 1.2 AV Cusp Separation MM 2.8 cm DOPPLER AV Peak Velocity 131.0 cm/s LVOT Peak Velocity 81.0 cm/s AV Area Cont Eq vti 2.5 cm squared AV Area Cont Eq pk 1.9 cm squared MV Peak Velocity 127.0 cm/s MV Area PHT 5.2 cm squared Mitral E to A Ratio 1.1 TV Peak Velocity 270.5 cm/s TR Peak Velocity 375.0 cm/s TR Peak Gradient 56.3 mmHg TV Peak E Velocity 116.0 cm/s PV Peak Velocity 130.0 cm/s FINDINGS Left Ventricle Normal left ventricular size, systolic function and wall thickness, with no regional wall motion abnormalities. Left ventricular ejection fraction is estimated at 65 %. Right Ventricle Normal right ventricular size. Right Atrium Normal right atrial size. Left Atrium Normal left atrial size. IA Septum Normal interatrial septum. Mitral Valve Structurally normal mitral valve. Mild mitral annular calcification. Trace mitral valve regurgitation. Aortic Valve Thickened aortic valve. No aortic valve stenosis. Tricuspid Valve Structurally normal tricuspid valve. Trace tricuspid valve regurgitation. TVPG could not be assessed accurately it appears mildly high around 35 mmHg. Mildly elevated right heart and pulmonary pressure = 40 mmHg Pulmonic Valve Pulmonic valve not well visualized. Trace pulmonary valve regurgitation. Pericardium No pericardial effusion. Aorta Normal size aortic root and proximal ascending aorta. IVC Normal inferior vena cava. CONCLUSIONS Normal left ventricular size and normal LV systolic function. LVEF estimated normal 65%. Normal RV size and RV systolic function. No significant valvular abnormality noted. Mildly elevated right heart and pulmonary pressure, 40 mmHg. Mohammad Anthony MD (Electronically Signed) Final Date: 15 October 2025 11:39 S
== END 2025-10-19 23:59 | disposition home or self-care (01) ==
LOC: RAD 10-16 00:01 → ONCMED 10-20 10:19
PROVIDERS: Nurse Practitioner; Nurse Practitioner Family; PCP Registered Nurse; Visit Provider Internal Medicine Medical Oncology
DX: R60.9 Edema, unspecified; Z79.899 Other long term (current) drug therapy; I34.81 Nonrheumatic mitral (valve) annulus calcification; I35.8 Other nonrheumatic aortic valve disorders; R93.1 Abnormal findings on diagnostic imaging of heart and coronary circulation; Z53.9 Procedure and treatment not carried out, unspecified reason
CPT/HCPCS: 80053; 84153; 84403; 85025; 93306; 96365; 96367; 96375; 96413; 99214; 99215; J0133; J1100; J1200; J1450; J2469; J3490; J7050; J9171

== ENCOUNTER 2025-11-04 09:22 | Oncology outpatient (recurring) (ONCR) | payer MEDICARE, SELFPAY ==
[2025-11-04 09:44] LABS: Hematocrit 36.3 % (37-53); Hemoglobin 12.00 g/dL (11.27-16.99); Mean Corpuscular HGB Conc 33.1 g/dL (30-55); Mean Corpuscular Hemoglobin 32.4 pg (27-33); Mean Corpuscular Volume 98.1 fl (82-101); Nucleated Red Blood Cells % 0 %; Platelet Count 200 10^3/cmm (157-399); Red Blood Count 3.70 10^6/uL (3.85-5.65); White Blood Count 7.40 10^3/uL (3.29-11.43)
[2025-11-04 10:10] LABS: Alanine Aminotransferase 23 U/L (0-41); Albumin Level 3.8 g/dL (3.5-5.2); Alkaline Phosphatase 54 U/L (40-130); Anion Gap 18.0 (5-19); Aspartate Amino Transferase 19 U/L (0-40); Blood Urea Nitrogen 12 mg/dL (8-23); Calcium 8.9 mg/dL (8.5-10.5); Carbon Dioxide 21 mmol/L (22-29); Chloride 102 mmol/L (98-107); Globulin 2.5 g/dL (1.3-4.6); Glucose 122 mg/dL (65-115); Osmolality Calculated 285 mOsm/kg (285-295); Potassium 4.0 mmol/L (3.5-5.1); Sodium 137 mmol/L (136-145); Total Protein 6.3 g/dL (6.6-8.7)
[2025-11-04] MEDS: diphenhydrAMINE 50 mg/mL SDV 1mL 25 MG IVP (12:32)
[2025-11-04] MEDS: dexamethasone 4 mg/mL INJ 5 mL 16 MG IVP (12:36)
[2025-11-04] MEDS: leuprolide 22.5 mg Kit IM (14:04)
[2025-11-04 14:05] VITALS: BP 154/78; PULSE 84; RESP 17; TEMP 36.6; O2SAT 98
[2025-11-04] MEDS: denosumab 120 mg SDV (Infusion Clinic Only) SUBCUT (14:05)
== END 2025-11-04 23:59 | disposition home or self-care (01) ==
PROVIDERS: Nurse Practitioner Family; PCP Registered Nurse; Visit Provider Internal Medicine Medical Oncology
DX: Z51.11 Encounter for antineoplastic chemotherapy (principal); C61 Malignant neoplasm of prostate; C79.51 Secondary malignant neoplasm of bone; F17.210 Nicotine dependence, cigarettes, uncomplicated; R03.0 Elevated blood-pressure reading, without diagnosis of hypertension; K12.31 Oral mucositis (ulcerative) due to antineoplastic therapy; Z79.52 Long term (current) use of systemic steroids; Z95.828 Presence of other vascular implants and grafts; Z71.6 Tobacco abuse counseling; Z79.899 Other long term (current) drug therapy
CPT/HCPCS: 80053; 84153; 84403; 85025; 96372; 96375; 96402; 96413; 99214; J0897; J1100; J1200; J2469; J3490; J7050; J9171; J9217